=== PATIENT | male | born 1960 | race Caucasian/White ===

== ENCOUNTER 2016-10-02 04:30 | Inpatient (IN) | payer OTHER, MEDICAID ==
[2016-10-02] VITALS (12 sets, daily range): BP systolic 119–150; BP diastolic 64–106; PULSE 91–129; RESP 15–58; O2SAT 93–100
[~2016-10-02] VITALS: Ht 177.8 cm; Wt 86.6 kg
[~2016-10-02 04:30] MED LIST: DIGO250T72 PO; FURO40TA4 PO; LOSA25TA2 PO; METO25TA6 PO; NICO1PAT6 TOPICAL; POTA20TA7 PO; [UNRECOGNIZED DRUG - OTHER] PO
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
[2016-10-02] MEDS ORDERED: Albuterol-Ipratropium 3 mL Inhalation Solution ONE (04:33)
[2016-10-02] MEDS ORDERED: Albuterol 2.5 mg/3 mL Inhalation Solution NEB ONE ×2 (04:33→04:35)
[2016-10-02] MEDS ORDERED: Albuterol-Ipratropium 3 mL Inhalation Solution NEB ONE (04:35)
[2016-10-02] MEDS ORDERED: MethylprednisoLONE Sodium Succinate 62.5 mg/mL 2 mL Inj IVPUSH ONE (04:35)
[2016-10-02] MEDS ORDERED: GLIM4TAB2 PO (04:47)
[2016-10-02 04:49] LABS: BASOPHILS % (AUTO) 0.3 % (0-3); EOSINOPHILS % (AUTO) 0.2 % (0-5); MONOCYTES % (AUTO) 9.1 % (4-12); Mean Corpuscular Hemoglobin 30.7 pg (27.0-35.0); Mean Corpuscular Volume 95.8 fL (81-100); NEUTROPHILS % (AUTO) 73.2 % (40-74); Platelet Count 278 bil/L (150-400)
[2016-10-02] MEDS ORDERED: LORA1TAB PO (04:50)
[2016-10-02] MEDS ORDERED: HYDR50CA3 PO (04:50)
[2016-10-02] MEDS ORDERED: FURO40TA4 PO (04:50)
[2016-10-02 05:23] LABS: Magnesium 2.3 mg/dL (1.6-2.6)
[2016-10-02 05:41] LABS: TROPONIN T 0.065 ug/L (0.0-0.011)
[2016-10-02] MEDS ORDERED: Nitroglycerin 2% 1 Gm Ointment TOPICAL SCH (05:50)
[2016-10-02] MEDS ORDERED: Alum-Mag Hydrox-Simeth 30 mL Suspension PO PRN (07:35)
[2016-10-02] MEDS ORDERED: Ondansetron 2 mg/mL 2 mL Inj IVPUSH PRN ×2 (07:35→08:10)
[2016-10-02] MEDS ORDERED: Polyethylene Glycol (PEG) 17 Gm Powder PO PRN (08:10)
--- NOTE | 2016-10-02 08:11 | NUR ---
Admit Pt admitted to [facility] from ER at 0800. Pt sleepy but easily arousable and A&Ox3. Pt too weak to stand but slid over to bed. Vitals taken RR high 40's, hypertensive, ST 118, 02 95% on 4L simple mask. Full body rash noted along with generalized scabs. MD's aware and rounding. Admit to be completed after. No c/o pain.
[2016-10-02] MEDS ORDERED: MeTOProlol 1 mg/mL 5 mL Inj IVPUSH PRN (08:15)
[2016-10-02] MEDS: Lactated Ringer's 1,000 ML IV SCH ×2 (08:23→17:55)
[2016-10-02] MEDS: Albuterol-Ipratropium 3 mL Inhalation Solution NEB SCH ×4 (08:30→22:00)
[2016-10-02] MEDS ORDERED: Furosemide 10 mg/mL 4 mL Inj IVPUSH SCH (08:30)
[2016-10-02] MEDS ORDERED: Glucose 40% Oral Gel 15 Gm Tube PO PRN (08:40)
--- NOTE | 2016-10-02 08:48 | DRSVH ---
PROCEDURE: X-RAY CHEST ONE VIEW, PORTABLE ([id number]) INDICATIONS: SHORTNESS OF BREATH TECHNIQUE: One view of the chest was acquired. COMPARISON: [facility], CR, XR CHEST 1VW (PORTABLE), 06/16/2016, 17:22. [facility], CR, XR CHEST 2VW, 05/25/2016, 19:58. FINDINGS: Surgical changes and devices: lunchroom monitor leads and oxygen tubing is seen over the chest. Lungs and pleura: Minimal blunting of the costophrenic sulci is present. Lungs are clear of Increased interstitial markings are present. Mediastinum: Mediastinal contours appear normal. Heart size is enlarged but unchanged Bones and chest wall: No suspicious bony lesions. Overlying soft tissues appear unremarkable. IMPRESSION: Chronic increased markings versus mild interstitial pulmonary edema. Focal airspace disea se is not seen. Dictated by: Neno Blank M.D. on 10/02/2016 at 8:43 Approved by: Neno Blank M.D. on 10/02/2016 at 8:46
[2016-10-02] MEDS ORDERED: DIETARY SUPPLEMENT PO (09:30)
[2016-10-02] MEDS ORDERED: UBID60CA6 PO (09:37)
[2016-10-02] MEDS ORDERED: CRAN500T2 PO (09:37)
[2016-10-02 09:43] LABS: BASOPHILS % (AUTO) 0.1 % (0-3); EOSINOPHILS % (AUTO) 0 % (0-5); MONOCYTES % (AUTO) 2.5 % (4-12); Mean Corpuscular Hemoglobin 30.7 pg (27.0-35.0); Mean Corpuscular Volume 95.1 fL (81-100); NEUTROPHILS % (AUTO) 92.2 % (40-74); Platelet Count 233 bil/L (150-400)
[2016-10-02 09:43] LABS: APPEARANCE,URINE SLIGHTLY CLOUDY (CLEAR,HAZY); COLOR,URINE YELLOW (YELLOW); OCCULT BLOOD,URINE MODERATE (NEGATIVE); UROBILINOGEN,URINE NORMAL (NORMAL)
[2016-10-02 10:08] LABS: Phosphorus 3.6 mg/dL (2.5-4.9)
--- NOTE | 2016-10-02 10:15 | PCM.HPMED ---
Subjective Date of Service Oct 02, 2016 Primary Provider: Admitting Physician: Frankie Bui MD Primary Care Physician: Leticia Jacobs MD Attending Physician: Frankie Bui MD Chief Complaint: Shortness of breath/CHF exacerbation History of Present Illness: Mr. Gonzáles is a 56-year-old male with past medical history of congestive heart failure, asthma, methamphetamine use, chronic tobacco use, anxiety and depression presented to [facility] ED secondary to SOB 3 days. At time of interview patient somnolent with oxygen mask in place, able to answer questions in 1-2 word sentences though unable to provide a detailed history of present illness. The overall picture seems to be that over the last 3 days he has become increasingly short of breath, unknown if he has been compliant with his medications. He endorses continual methamphetamine as well as marijuana use during this time (no mask today). He endorses a cough during this time productive for white sputum, denies fevers denies sick contacts. Unknown about immunization status, unknown travel history unknown exposure history. He denies cardiac chest pain, endorses a shortness of breath with pain on deep inhalation. He endorses a left upper and lower abdominal/flank pain which increases with palpation, further stating that pain has always been there. Patient was hospitalized 06/16/2016 secondary to decompensated heart failure and cardiomyopathy of unknown etiology. LVEF seen to be 15-20% with severe global hypokinesis, though no significant valvular abnormalities found. The plan was to do cardiac catheterization for an ischemic workup however patient was not compliant with this plan or with medications. He followed up with cardiology on 07/07/[address] Phelps and LYLE Cardoso. Still showing signs of cardiomyopathy and sinus tachycardia. His instructions were to continue taking his furosemide 40 mg twice a day, losartan 0.5 milligrams daily and digoxin 0.25 mg daily and metoprolol 12.5 mg daily. He refused metoprolol and other medications stating that he would decide for himself if it would be good or not for him. The only vacations he was agreeable to take at that time was digoxin, Lasix and losartan. Per cardiology note patient is in need of an ischemic workup with cardiac catheterization however patient was not interested in this treatment plan or wearing a LifeVest. And only minimally compliant with cardiac medications. In the ED patient received DuoNeb treatment with benefit. Admitted to [facility]. A comprehensive review of systems was conducted with the patient and found to be negative except as above in the history of present illness. Allergies Coded Allergies: Penicillins (Verified Allergy, Severe, 10/02/16) Uncoded Allergies: NARCOTIC (Allergy, Intermediate, anxiety, panic attacks, suicidal., ) Patient states he gets panic attacks from narcotics if he is on them for a long time. He said more than 10-11 days. STEROIDS (Allergy, Intermediate, violent, 11/08/13) Home Medications Per Med Rec: Digoxin 0.25 mg daily Furosemide 80 mg oral daily Glimiperide 4 mg oral daily Hydroxyzine pamoate 50 mg capsule when necessary Lorazepam 1 mg daily when necessary for insomnia Losartan 12.5 mg by mouth daily Toprol tartrate 12.5 mg twice a day Nicotine patch 21 mg daily Potassium chloride 20 mEq equivalence by mouth daily Per previous hospital admission Albuterol HFA (Proair HFA) 8.5 Gm Hfa.aer.ad 2 PUFFS INHALATION Q4H Azithromycin (Zithromax) 250 Mg Tablet 250 MG PO DAILY Cefuroxime Axetil (Ceftin) 500 Mg Tablet 500 MG PO BID Fluticasone Propionate (Fluticasone Propionate Nasal) 16 Gm [place].susp 1 SPRAY NS BID CoQ10. 60 mg daily PMH Per previous records CHF, EF 15-20% Anxiety Asthma Diabetes mellitus type II Depression Chronic back pain Surgical History Colonoscopy C5-6 Disectomy Reports: Back/neck surgery Family History FAMILY HX CHF Social History Hx Alcohol Use: Yes Alcoholic Drinks Per Day: 1 a week Hx Substance Use: No Smoking Status: Current Every Day Smoker Exam Vital Signs Vital Sign - Last Date Time Temp Pulse Resp B/P Pulse Ox O2 Delivery O2 Flow Rate FiO2 10/02/16 09:54 Supplement Oxygen 10/02/16 08:04 122 10/02/16 08:02 37.0 58 143/106 98 15.00 Exam General: Patient is somnolent but arousable to voice, sitting in bed tachypneic with oxygen mask in place. To answer questions in 1-2 word responses. HEENT: Normocephalic, atraumatic. External ears without defect. Pupils equal, round, and reactive to light and accommodation. Neck: No jugular venous distension. No bruits Cardiovascular: Tachycardic rate with regular rhythm no murmurs appreciated. Pulmonary: Positive bilateral wheezes, and rhonchi in upper anterior lung crum , patient unable or unwilling to sit up for exam. Abdomen: Bowel tones present. Soft, ended to palpation left lower left upper quadrants. Nondistended. No rigidity or guarding Extremities: No clubbing, cyanosis, edema appreciated Skin: Diffuse mottled rash over chest arms and legs. Normal temperature and turgor. Many excoriations covering face arms "pick sores" Neurological: Cranial nerves grossly intact. Psychiatric: Somnolent, alert and oriented to person place and time. Lab and Diagnostics Result Diagram: 10/02/16 0926 10/02/16 0440 X-Rays, CTs and MRIs . X-RAY CHEST ONE VIEW, PORTABLE IMPRESSION: Chronic increased markings versus mild interstitial pulmonary edema. Focal airspace disease is not seen. Dictated by: eNno Blank M.D. on 10/02/2016 at 8:43 Additional Diagnostics: pH ____7.425 - 7.350 7.450 pCO2 ___36.6__ -mmHg 35.0 45.0 pO2 ___44.1__ -mmHg 69.0 116 HCO3- ___23.6__ -mmol/L 22.0 26.0 Assessment & Plan Mr. Gonzáles is a 56-year-old gentleman with past medical history of congestive heart failure, asthma, methamphetamine use, chronic tobacco use, anxiety and depression who is admitted for CHF exacerbation and sepsis. Hospital day 1 1. Severe Sepsis. Present on admission. Ongoing - Sepsis criteria met with tachycardia, tachypnea, and lactic acidosis and leukocytosis - Possible sources include a pneumonia, UTI - Appropriate cultures and serologies pending - Documented allergy to penicillin, patient states he was told he would if he took this medication - Vancomycin, levofloxacin and metronidazole started - Continue to monitor 2. Congestive heart failure with systolic dysfunction. Present on admission. Ongoing - Last echo showed an EF of 15% with severe global hypokinesis. - Questionable medication compliance prior to admission - CXR showed cardiomegaly - Repeat echo pending - Cardiology consult - Lasix 40 mg given with improvement in respiratory status - Restart home meds digoxin, metoprolol, losartan, furosemide 3. Acute respiratory failure with hypoxia. Present on admission. Ongoing - Severe respiratory distress seen in ED with tripoding position - DuoNeb's given with some effect - Solu-Medrol given, diffuse rash resultant most likely secondary to allergy - Hold additional steroid administration - Continue duo nebs every 3 schedule - Supplemental O2 - ABGs showed pH 7.4, PCO2 37, PO2 44.1, HCO3 23.6. - Continue to monitor 4. Elevated troponins. Present on admission. Improving - In the setting of CKD - Previous echo shows severe global hypokinesis - ECG showed evidence of old infarction - Troponin trending down 0.065 on admit to 0.04 - Continue to monitor - Cardiology following 5. Possible Pneumonia. Present on admission. Ongoing - CXR showed interstitial markings versus pulmonary edema - Pro calcitonin pending - Antibiotics as in #1 6. Urinary tract infection. Present on admission. Ongoing - Urinalysis showed packed WBC. Large leukocyte esterase. - Culture pending - Antibiotics as in #1 7. Chronic kidney disease. Present on admission. Ongoing - Creatinine 1.29 on admission, previous records show elevated creatinine - Lasix given - Continue to monitor 8. Drug dependence. Present on admission. Ongoing - Patient has history of chronic methamphetamine, alcohol and marijuana use - Monitor for withdrawal symptoms - CIWA protocol 9. Hyponatremia. Present on admission. Improving - Most likely secondary to volume overload - Sodium on admission 130, repeat level 133 -Continue to monitor 10. Diabetes mellitus type II and present on admission. Ongoing - Last A1c 06/17/2016 7.5, repeat value pending - Blood glucose level 380 on admit - High-dose correctional scale insulin - Continue to monitor 11. Transaminitis. Present on admission. Ongoing - Possibly secondary to chronic alcohol use - AST 927, AST 1017 - HIV from 06/18/2016 nonreactive - Hepatitis panel pending DVT prophylaxis: Subcutaneous heparin GI prophylaxis: Not indicated CODE STATUS: Full code Patient Status: Patient was admitted under inpatient status with expected length of stay greater than two midnights due to severity of presenting symptoms , risk of adverse event, and complexity of treatment plan. Pain Evaluation: Adequate Pain Control VTE Mechanical Devices: Intermittant Pneumatic CD Resuscitation Status: CPR: Attempt Resuscitation Attending Statement The patient was seen and examined together with Dr. Saenz on 10/02/2016 and I agree with the history, exam and plan as outlined in the note above. . LISBET SAENZ DO Oct 02, 2016 10:15 Karl Naik MD Oct 02, 2016 18:15
--- NOTE | 2016-10-02 10:33 | ABG ---
DateTimeAnalyzed 10:27:00 -_ pH ____7.425 - 7.350 7.450 pCO2 ___36.6__ -mmHg 35.0 45.0 pO2 ___44.1__ -mmHg 69.0 116 HCO3- ___23.6__ -mmol/L 22.0 26.0 ABE ____0.0__ -mmol/L -2.0 2.0 tHb ___13.3__ -g/dL O2Hb ___74.6__ -% COHb ____1.4__ -% MetHb ____0.8__ -% sO2 ___76.3__ -% 25.0 FIO2 ___21.0__ -% Drawn By [facility] - Date/Time Notified____ 10:33:00 -_ Notified By [facility] - Notified Whom Dany, Sanchez DO -___ B 753 -mmHg tO2 ___13.9__ -Vol% Nelson test _Positive -
--- NOTE | 2016-10-02 11:39 | NUR ---
Social Work Note: Screen Note Data& Assessment: EMR reviewed. Javier Gonzáles is a 56 year old male admitted on 10/02/2016 for CHF exacerbation, dynea, and elevated troponin. Pt has [employer] insurance coverage and sees Leticia Jacobs MD for primary care. Pt lives in [place] and is independent at baseline. Per MD pt does use methamphetamine. SW to follow up with pt regarding substance use, and resources. Pt requires oxygen, SW to follow for any respiratory needs. SW to continue to follow. Plan: Anticipated discharge home via POV when medically ready. SW to follow up with pt regarding substance use, and resources. SW to follow for any respiratory needs. No other discharge needs identified at this time. SW to continue to follow. SHEBA Green
[2016-10-02] MEDS ORDERED: Vancomycin Dose per Pharmacist XX SCH (11:40)
[2016-10-02] MEDS ORDERED: Vancomycin/500 mL NS IV ONE ×2 (13:00)
[2016-10-02] MEDS ORDERED: FluocinoNIDE Acet 0.05% 30 Gm Cream TOPICAL PRN (13:03)
[2016-10-02] MEDS ORDERED: 0.9% Sodium Chloride 250 ML ONE (13:35)
[2016-10-02] MEDS: Insulin LISPRO 300 Unit/3 mL Inj SUBQ SCH ×3 (13:40→21:37)
[2016-10-02] MEDS: Multivit-Miner-Folic Acid-Iron Tablet PO SCH (13:41)
[2016-10-02] MEDS: levoFLOXacin Inj 750 MG in IV Premix 1 EACH IV SCH (13:42)
[2016-10-02] MEDS: metroNIDAZOLE Inj 500 MG in IV Premix 1 EACH IV SCH ×2 (15:22→16:30)
[2016-10-02] MEDS: Vancomycin Dose per Pharmacist XX SCH (15:43)
--- NOTE | 2016-10-02 15:49 | DRSVH ---
[facility] [address] [place] [address] Echocardiogram Report Name: ANTONELLA LOUIS GStudy Date: 10/02/2016 Height: 70 in Hospital Exam Location: [facility] Weight: 196 lb Gender: Male BSA: 2.1 m2 : 1960 Age: 56 yrs BP: 144/71 m mHg Reason For Study: Congestive Heart Failure Ordering Physician: [facility] Performed By: Sheri Pierce Referring Physician: Jessica Phelps Interpretation Summary 1) Mild concentric left ventricular hypertrophy with normal size and severely reduced function (EF 15-20%). 2) Multiple mural thrombi noted in LV apex and along inferolateral wall. 3) Mild to moderately enlarged right ventricle with mildly to moderate reduced function. 4) There is a moderate left-sided pleural effusion. 5) Elevated right sided filling pressures. 6) Compared to the Echo done 06/16/2016, multiple mural thrombi are present in the LV. Findings discussed with Dr. Daniel Saenz at 1545 on 10/02/2016 and recommend anticoagulation unless contraindicated. Procedure: A two-dimensional transthoracic echocardiogram with color flow and Doppler was performed. The study quality was technically adequate. Comparison is made with the echocardiogram of 06/16/2016. Left Ventricle: The left ventricle is normal in size. There is mild concentric left ventricular hypertrophy. Multiple mural thrombi noted in LV apex and along inferolateral wall. The ejection fraction is estimated to be 15-20%. Left ventricular systolic function is severely reduced. There is severe global hypokinesis of the left ventricle. Diastolic function could not be accurately assessed due to tachycardia. Right Ventricle: The right ventricle is mild to moderately dilated. Right ventricular systolic function is mild to moderately reduced. Atria: The left atrium is severely dilated. The right atrium is mildly dilated. Mitral Valve: The mitral valve is normal in structure and function. There is trace mitral regurgitation. Aortic Valve: The aortic valve is normal in structure and function. There is no aortic valve stenosis. No aortic regurgitation is present. Tricuspid Valve: The tricuspid valve is normal in structure and function. Pulmonary artery pressures cannot be estimated because of the lack of a measurable TR jet velocity. Pulmonic Valve: The pulmonic valve is normal in structure and function. There is a trace or physiologic amount of pulmonic regurgitation. Great Vessels: The aortic root is normal size. The ascending aorta is normal in size. The IVC is dilated (diameter is greater than 2.1 cm) and it collapses less than 50% with a sniff. This suggests a high right atrial pressure of 15 mm Hg. Pericardium/ Pleura There is no pericardial effusion. There is a moderate left-sided pleural effusion. MMode/2D Measurements & Calculations LVIDd: 5.5 cm RA long axis: 5.5 cm LVOT diam LVIDs: 4.9 cm LA A2 area: 29.2 cm FS: 10.7 % LA A4 area: 29.7 cm RA area: 21.0 cm AoV Opening EPSS: 1.5 cm LA length (vol): 6.7 cm RA vol: 68.7 ml IVSd: 1.1 cm LA vol: 109.5 ml RA : 33.2 ml/m2 asc Aorta LVPWd: 1.2 cm LA vol index Diam: 3.2 cm IVC diam: 2.5 cm EDV(MOD-sp2) LV french. diameter/BSA LV sys. diameter/BSA RVD1 (basal) : 170.7 ml (cm/m^2): 2.7 (cm/m^2): 2.4 : 4.6 cm RVD2 (mid) TAPSE: 1.6 cm : 3.6 cm Doppler Measurements & Calculations Ao V2 max MVA(VTI) PA V2 max MV V2 mean: 72.1 cm/sec : 73.9 cm/sec : 74.2 cm/sec MV mean P.3 mmHg Ao max PG : 4.3 cm2 PA mean PG MV V2 VTI: 12.4 cm : 2.2 mmHg Ao mean PG PA Accel Time LVOT Max Sven : 76.7 cm/sec KELLI(I,D): 5.5 cm sev ratio: 1.3 Ao V2 mean LV V1 max PG PA V2 mean KELLI indexed to BSA : 52.1 cm/sec : 57.1 cm/sec (cm^2/m^2): 2.7 Ao V2 VTI: 9.8 cm LV V1 VTI KELLI(V,D): 4.4 cm2 : 12.8 cm Reading Physician:03:49 PM
[2016-10-02] MEDS: Furosemide 10 mg/mL 4 mL Inj IVPUSH SCH ×2 (16:26→21:57)
[2016-10-02 16:33] LABS: Creatine Kinase 107 U/L (21-232)
[2016-10-02] MEDS: LORazepam 1 mg Tablet PO PRN (21:39)
[2016-10-03] VITALS (10 sets, daily range): BP systolic 109–122; BP diastolic 68–86; PULSE 102–112; RESP 22–26; O2SAT 92–99
[2016-10-03] MEDS: Albuterol-Ipratropium 3 mL Inhalation Solution NEB SCH ×2 (00:30→04:30)
[2016-10-03] MEDS: metroNIDAZOLE Inj 500 MG in IV Premix 1 EACH IV SCH ×3 (01:17→17:01)
[2016-10-03 04:06] LABS: BASOPHILS % (AUTO) 0.1 % (0-3); EOSINOPHILS % (AUTO) 0 % (0-5); MONOCYTES % (AUTO) 5.7 % (4-12); Mean Corpuscular Hemoglobin 30.6 pg (27.0-35.0); Mean Corpuscular Volume 96.6 fL (81-100); NEUTROPHILS % (AUTO) 88.4 % (40-74); Platelet Count 221 bil/L (150-400)
[2016-10-03 04:21] LABS: INR 1.61 ratio
[2016-10-03 04:41] LABS: Magnesium 1.8 mg/dL (1.6-2.6)
[2016-10-03] MEDS: Lactated Ringer's 1,000 ML IV SCH (06:07)
[2016-10-03 06:08] LABS: Hepatitis A Antibody IgM Negative (Negative); Hepatitis B Core Antibody IgM Negative (Negative)
--- NOTE | 2016-10-03 07:23 | DRSVH ---
PROCEDURE: X-RAY CHEST ONE VIEW, PORTABLE ([id number]) INDICATIONS: Poss Pneumonia TECHNIQUE: One view of the chest was acquired. COMPARISON: [facility], CR, XR CHEST 1VW (PORTABLE), 10/02/2016, 4:53. FINDINGS: Surgical changes and devices: None. Lungs and pleura: No pleural effusions or pneumothorax. Mildly increased medial left lower lobe retr ocardiac patchy opacity. Mediastinum: Mediastinal contours appear normal. Heart size is normal. Bones and chest wall: No suspicious bony lesions. Overlying soft tissues appear unremarkable. IMPRESSION: Mildly increased patchy opacity in the medial retrocardiac left lower lung base since yes terday, raising the possibility of mild atelectasis/aspiration versus early pneumonia. Recommend clin ical correlation and continued radiographic followup Dictated by: Sage Dennis M.D. on 10/03/2016 at 7:20 Approved by: Sage Dennis M.D. on 10/03/2016 at 7:21
[2016-10-03] MEDS: levoFLOXacin Inj 750 MG in IV Premix 1 EACH IV SCH (08:00)
[2016-10-03] MEDS: Furosemide 10 mg/mL 4 mL Inj IVPUSH SCH ×2 (08:01→20:14)
[2016-10-03] MEDS: Insulin LISPRO 300 Unit/3 mL Inj SUBQ SCH ×4 (08:06→21:28)
[2016-10-03] MEDS: Multivit-Miner-Folic Acid-Iron Tablet PO SCH (08:08)
[2016-10-03] MEDS: Vancomycin Dose per Pharmacist XX SCH (08:30)
[2016-10-03] MEDS: Insulin GLARgine 100 Unit/mL Syringe SUBQ SCH ×2 (12:05→21:29)
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
[2016-10-03] MEDS: Alum-Mag Hydrox-Simeth 30 mL Suspension PO PRN (14:05)
--- NOTE | 2016-10-03 15:10 | NUR ---
Social Work Note: Continued Discharge Planning/CD Assessment Data& Assessment: SW met with pt at bedside to discuss discharge planning and Meth use, SW role explained. Per MD pt may require leydi cath and is not medically ready for discharge at this time. Pt lives in [place] with roommates. His roommates helps him with grocery shopping, chores and driving him to appointments if needed. Pt is otherwise independent and uses a cane at baseline for ambulation assistance. Pt reports that he only uses meth "occasionally" since he was younger and it is not something he is "addicted" to. Pt states that he has "self control" and has quite smoking on his own and was able to stop using cocaine after a couple of weeks on his own when he was younger as well. Pt explained that he was once evaluated by [facility] (pt did not explain what led to the assessment) and deemed "not an addict." Pt declined any CD resources at this time. Pt denied any current SI. Pt denies any hx of SI or thoughts of harming himself or others. Pt states he his roommate will transport him home when medically ready. Pt accepted DPOA/Advance Directive paperwork to review and complete for his chart. Pt denies any other needs. No other discharge needs identified. SW to continue to follow if any needs arise. Plan: Anticipated discharge home via POV when medically ready. Pt denies any other needs. No other discharge needs identified. SW to continue to follow if any needs arise. SHEBA Green
[2016-10-03] MEDS: LORazepam 1 mg Tablet PO PRN (15:32)
--- NOTE | 2016-10-03 17:34 | NUR ---
Anxiety/Blood sugars The pt reported SOB numerous times on the second half of this shift - reports it's related to "feeling anxious". Oxymask at 4L and PO lorazepam sufficient at relieving the SOB. The pt's blood sugars were >500 this morning, and gradually came down with correctional and long acting insulin. Will continue to monitor.
--- NOTE | 2016-10-03 20:34 | PCM.PNMED ---
Subjective Date of Service Oct 03, 2016 Subjective Patient is a 56-year-old gentleman with congestive heart failure, asthma, methamphetamine use, chronic tobacco use, anxiety and depression admitted for CHF exacerbation and sepsis. No overnight events. Patient has been non-compliant with treatment this morning refusing Lovenox and supplemental oxygen. During my interview the patient seems ambivalent and not interested in participating. He reports that he is tired, otherwise is without other complaint. Exam Vital Signs Vital Sign - Last Date Time Temp Pulse Resp B/P Pulse Ox O2 Delivery O2 Flow Rate FiO2 10/03/16 20:10 36.5 112 26 119/79 97 Simple Mask 5.00 Intake and Output 10/02/16 10/02/16 10/03/16 Cumulative From/Thru 15:00 23:00 07:00 10/02/16 04:35 - 10/03/16 06:31 Intake Total 2204 ml 1600 ml 3804 ml Output Total 3450 ml 2200 ml 5650 ml Balance -1246 ml -600 ml -1846 ml Intake Oral 1154 ml 1000 ml 2154 ml IV Total 1050 ml 600 ml 1650 ml Output Urine Total 3450 ml 2200 ml 5650 ml # Bowel Movements 1 1 Exam General: Patient is supine in bed. No acute distress. Not interactive. HEENT: Normocephalic, atraumatic. External ears without defect. Cardiovascular: Tachycardic with regular rhythm. No murmurs appreciated. Pulmonary: Occasional wheeze bilaterally Abdomen: Bowel tones present. Nontender. Soft. Extremities: No clubbing, cyanosis, edema appreciated Skin: Normal temperature and turgor. Multiple excoriations on face and arms Neurological: Cranial nerves grossly intact. Psychiatric: Alert and oriented to person, place and time. IVs and Medications Medications Reviewed: Medications were reviewed in detail Lab and Diagnostics Result Diagram: 10/03/165 10/03/16344 X-Rays, CTs and MRIs . X-RAY CHEST ONE VIEW, PORTABLE IMPRESSION: Chronic increased markings versus mild interstitial pulmonary edema. Focal airspace disease is not seen. Dictated by: Neno Blank M.D. on 10/02/2016 at 8:43 Additional Diagnostics pH ____7.425 - 7.350 7.450 pCO2 ___36.6__ -mmHg 35.0 45.0 pO2 ___44.1__ -mmHg 69.0 116 HCO3- ___23.6__ -mmol/L 22.0 26.0 Assessment & Plan Mr. Gonzáles is a 56-year-old gentleman with past medical history of congestive heart failure, asthma, methamphetamine use, chronic tobacco use, anxiety and depression who is admitted for CHF exacerbation and sepsis. Hospital day 2 1. Severe Sepsis. Present on admission. Ongoing - Sepsis criteria met with tachycardia, tachypnea, and lactic acidosis and leukocytosis - Possible sources include a pneumonia, UTI - Negative: Respiratory virus PCR, Strep pneumo ur ag, legionella ur ag - Documented allergy to penicillin, patient states he was told he would if he took this medication - Continue Vancomycin, levofloxacin and metronidazole - Continue to monitor 2. Congestive heart failure with systolic dysfunction. Present on admission. Ongoing - Echo shows EF of 15-20% with severe global hypokinesis and multiple mural thrombi in LV apex and inferolateral wall - Patient admits to not taking his medications over the past year - CXR showed cardiomegaly - Repeat echo pending - Cardiology following - Continue Lasix 40mg - Continue digoxin, metoprolol 3. Acute respiratory failure with hypoxia. Present on admission. Ongoing - Severe respiratory distress seen in ED with tripoding position - DuoNeb's given with some effect - Solu-Medrol given, diffuse rash resultant most likely secondary to allergy - Hold additional steroid administration - Continue duo nebs every 3 schedule - Supplemental O2 - ABGs showed pH 7.4, PCO2 37, PO2 44.1, HCO3 23.6. - Continue to monitor 4. Elevated troponin. Present on admission. Improving - In the setting of CKD - Echo shows severe global hypokinesis - ECG showed evidence of old infarction - Troponin trending down 0.065 on admit to 0.021 - Continue to monitor - Cardiology following 5. Acute kidney injury. Present on admission. Active - Records from 3 months ago show normal creatinine - Will hold losartan until back to baseline 6. Possible Pneumonia. Present on admission. Ongoing - CXR showed interstitial markings versus pulmonary edema - Procalcitonin elevated at 0.38, 0.36 - Antibiotics as in #1 7. Urinary tract infection. Present on admission. Ongoing - Urinalysis showed packed WBC. Large leukocyte esterase. - Culture pending - Antibiotics as in #1 8. Drug dependence. Present on admission. Ongoing - Patient has history of chronic methamphetamine, alcohol and marijuana use - Monitor for withdrawal symptoms - CIWA protocol 9. Hyponatremia. Present on admission. Improving -Most likely secondary to volume overload -Continue to monitor 10. Diabetes mellitus type II and present on admission. Ongoing - Last A1c 06/17/2016 7.5, repeat value pending - Blood glucose level 380 on admit - High-dose correctional scale insulin - Continue to monitor 11. Transaminitis. Present on admission. Ongoing - Possibly secondary to chronic alcohol use - AST 927, AST 1017 - HIV from 06/18/2016 nonreactive - Hepatitis panel positive for hep C Ab DVT prophylaxis: Subcutaneous heparin GI prophylaxis: Not indicated CODE STATUS: Full code Disposition: Patient currently being diuresed for heart failure. Anticipate several more days of inpatient status pending clinical course. Pain Evaluation: Adequate Pain Control VTE Mechanical Devices: Intermittant Pneumatic CD Resuscitation Status: CPR: Attempt Resuscitation Attending Statement The patient was seen and examined together with Dr. Morales on 10/03/2016 and I agree with the history, exam and plan as outlined in the note above. . Paramjit Morales DO Oct 03, 2016 20:34 Karl Naik MD Oct 04, 2016 10:50
[2016-10-04] VITALS (9 sets, daily range): BP systolic 102–126; BP diastolic 71–87; PULSE 104–113; RESP 20–32; O2SAT 92–99
[2016-10-04] MEDS: metroNIDAZOLE Inj 500 MG in IV Premix 1 EACH IV SCH ×2 (00:22→07:50)
--- NOTE | 2016-10-04 02:42 | NUR ---
BLOOD SUGARS Pt BS @ HS was 357, 7 units regular and 20 units Lantus. BS's rechecked @ 0200 and were 309. Pt's vitals stable, ST 110's, no other issues noted at this time.
[2016-10-04 04:23] LABS: BASOPHILS % (AUTO) 0 % (0-3); EOSINOPHILS % (AUTO) 0.2 % (0-5); MONOCYTES % (AUTO) 7.7 % (4-12); Mean Corpuscular Hemoglobin 30.5 pg (27.0-35.0); Mean Corpuscular Volume 96.6 fL (81-100); NEUTROPHILS % (AUTO) 82.2 % (40-74); Platelet Count 240 bil/L (150-400)
[2016-10-04 04:38] LABS: Magnesium 1.9 mg/dL (1.6-2.6)
[2016-10-04] MEDS: Albuterol-Ipratropium 3 mL Inhalation Solution NEB PRN (07:22)
[2016-10-04] MEDS ORDERED: 0.9% Sodium Chloride 250 ML ONE (07:40)
[2016-10-04] MEDS: Furosemide 10 mg/mL 4 mL Inj IVPUSH SCH ×2 (07:59→21:10)
[2016-10-04] MEDS ORDERED: Vancomycin Serum Trough XX ONE (08:00)
[2016-10-04] MEDS: Multivit-Miner-Folic Acid-Iron Tablet PO SCH (08:04)
[2016-10-04] MEDS: Vancomycin Dose per Pharmacist XX SCH (08:30)
[2016-10-04] MEDS: Insulin LISPRO 300 Unit/3 mL Inj SUBQ SCH ×4 (09:12→21:19)
[2016-10-04] MEDS: levoFLOXacin Inj 750 MG in IV Premix 1 EACH IV SCH (10:47)
--- NOTE | 2016-10-04 11:44 | NUR ---
Restless/hot chocolate spill Pt A&OX3 but intermittently anxious throughout the shift. Calm in the morning, restless and agitated in the afternoon, calm currently. C/O pain "all over". Breathing shallow and labored. Pt asked for a hot chocolate this AM but very quickly spilled it down the side of his R arm. The water was quite hot. Red rashy area present but pt states that was there before. Continuing to monitor for any burned or irritated skin. Cool towels provided for comfort.
--- NOTE | 2016-10-04 13:40 | DRSVH ---
PROCEDURE: X-RAY CHEST ONE VIEW, PORTABLE ([id number]) INDICATIONS: dyspnea TECHNIQUE: One view of the chest was acquired. COMPARISON: [facility], CR, XR CHEST 1VW (PORTABLE), 10/03/2016, 3:23. FINDINGS: Surgical changes and devices: None. Lungs and pleura: No pleural effusions or pneumothorax. Lungs are clear. Mediastinum: Mediastinal contours appear normal. Heart size is normal. Bones and chest wall: No suspicious bony lesions. Overlying soft tissues appear unremarkable. IMPRESSION: No acute cardiopulmonary disease. Dictated by: Jacob Mulligan [facility] Interpreted: Modesta Rutledge MD on 10/04/2016 at 13:39 Transcribed by: ARY on 10/04/2016 at 13:39 Approved by: Modesta Rutledge MD, PhD on 10/04/2016 at 17:20
--- NOTE | 2016-10-04 13:55 | PROG NOTE ---
[address] [address] PROGRESS NOTE PATIENT: ANTONELLA LOUIS : 1960 MR#: [id number] ADMIT: 10/02/2016 JOB ID: [id number] DATE: I have had an opportunity to review the patient's records and Dr. Leonard's consultation. Patient is currently sleeping and therefore my followup is limited to chart review and recommendations regarding his medications. This gentleman is diuresing well, approximately 1-2 L daily. His pulses have been consistently in the 100-120 range in a sinus rhythm, and blood pressure has generally been in the 100-130 range as well. His lab work is reviewed and shows a creatinine of 1.24, which is fairly stable, with an estimated GFR of 64. He remains significantly hyperglycemic. Transaminase levels are significantly improved. Given this gentleman's cardiomyopathy and ventricular dysfunction with his tachycardia, I am going to change him from metoprolol tartrate to metoprolol succinate and will order 25 mg twice a day daily and increase that as tolerated to get his heart rate below 100. Will also get him restarted up on low-dose losartan and low-dose spironolactone, watching his potassium and renal function closely. Social Service and perhaps even Psychiatry consult or drug rehab consultation should be considered. None of what we do will be impactful for this gentleman unless he is able to modify his drug use, eliminating methamphetamines for sure, and alcohol as well, given his cardiomyopathy and participating in his own medical care. I will plan to stop by tomorrow to follow up and will spend more time examining him tomorrow, if he is agreeable. DATE:
--- NOTE | 2016-10-04 14:27 | NUR ---
Blood sugars/anxiety Pt CBG this morning was 262. Sliding scale given. CBG in the afternoon was 467. Sliding scale given and MD notified. Pt appears restless and agitated but c/o feeling overly sleepy. Pt appears to have difficulty monitoring his temperature frequently c/o feeling too hot then too cold. Ativan was offered but pt refused stating "that's just gonna make me even more sleepy."
--- NOTE | 2016-10-04 15:24 | NUR ---
Near choking incident Staff heard patient gasping and coughing in room. Pt was able to say that he swallowed some jello "down the wrong pipe." Pt coughed hard for a couple of minutes and eventually produced some jello sputum. Pt educated to be sitting completely upright when eating. Lungs were clear following this event.
--- NOTE | 2016-10-04 17:02 | NUR ---
spiritual care: pt request visit attempt X2; pt with staff. will follow
[2016-10-04] MEDS: Alum-Mag Hydrox-Simeth 30 mL Suspension PO PRN (17:59)
--- NOTE | 2016-10-04 18:13 | DRSVH ---
PROCEDURE: US ABDOMEN ([id number]) INDICATIONS: elevated liver enzymes TECHNIQUE: Real-time scanning was performed of the abdominal and retroperitoneal organs, with image documentatio n. COMPARISON: [facility], US, US ABDOMEN, 07/02/2016, 12:24. FINDINGS: Liver: Liver is heterogeneous in appearance with increased echogenicity and coarse sonographic echot exture compatible with fatty infiltration. Gallbladder: There are multiple echogenic shadowing gallstones within a contracted gallbladder. Eval uation for gallbladder wall thickness is limited due to nondistention. Patient was reportedly tender during evaluation. No pericholecystic fluid identified. Biliary ducts: Intrahepatic bile ducts are non-dilated. Extrahepatic bile duct caliber measures 4-5 mm. Normal is 6-7 mm or less in diameter, or 10 mm or less post-cholecystectomy. Pancreas: Not well-seen due to bowel gas. Spleen: Spleen is normal in size and homogeneous in echotexture. Kidneys: Right kidney measures 11.2 cm long; left kidney measures 10.5 cm long. No hydronephrosis. Aorta: Visualized aorta is normal in caliber at less than 3 cm. Iliacs: Proximal common iliac arteries are not well seen due to bowel gas. IVC: Intrahepatic inferior vena cava is patent. Miscellaneous: No free abdominal fluid. IMPRESSION: 1. Increased hepatic echogenicity with coarse sonographic echotexture compatible with steatosis. 2. Cholelithiasis without definite evidence of cholecystitis. Evaluation limited due to incomplete distention of the gallbladder. 3. Dictated by: Kemal Chauhan M.D. on 10/04/2016 at 18:07 Approved by: Kemal Chauhan M.D. on 10/04/2016 at 18:11
--- NOTE | 2016-10-04 18:16 | PCM.PNMED ---
Subjective Date of Service Oct 04, 2016 Subjective Patient is a 56-year-old gentleman with congestive heart failure, asthma, methamphetamine use, chronic tobacco use, anxiety and depression admitted for CHF exacerbation and sepsis. Overnight: Patient remained restless and anxious throughout the night. Complaining of pain all over with shallow labored breathing. Today: Patient awake and alert sitting in bed. States he has pain all over, is able to get up bedside commode and urinate. Denies chest pain, denies shortness of breath. Endorses a diffuse soreness secondary to having to lie in bed all day. States he is willing to be compliant with medication administration Exam Vital Signs Vital Sign - Last Date Time Temp Pulse Resp B/P Pulse Ox O2 Delivery O2 Flow Rate FiO2 10/04/16 16:34 36.2 108 21 124/81 92 Room Air 10/04/16 12:37 4.00 Intake and Output 10/03/16 10/03/16 10/04/16 Cumulative From/Thru 14:59 22:59 06:59 10/02/16 04:35 - 10/04/16 06:22 Intake Total 1800 ml 986 ml 6590 ml Output Total 1800 ml 2950 ml 31674 ml Balance 0 ml -1964 ml -3810 ml Intake Oral 1800 ml 636 ml 4590 ml IV Total 350 ml 2000 ml Output Urine Total 1800 ml 2950 ml 37691 ml # Bowel Movements 0 0 1 Exam General: Patient is supine in bed. Awake and alert in no acute distress, opens eyes to voice and able to converse appropriately. HEENT: Normocephalic, atraumatic. External ears without defect. PERRLA Cardiovascular: Tachycardic with regular rhythm. No murmurs appreciated. Pulmonary: Bilateral slight wheezes. No use of accessory muscles. No increased work of breathing. Abdomen: Bowel tones present. Nontender. Soft. Extremities: No clubbing, cyanosis, edema appreciated Skin: Normal temperature and turgor. Multiple excoriations on face and arms. Mottled rash right upper extremity. Neurological: Cranial nerves grossly intact. Psychiatric: Alert and oriented to person, place and time. IVs and Medications Medications Reviewed: Medications were reviewed in detail Lab and Diagnostics Result Diagram: 10/04/16 0400 10/04/16 0400 X-Rays, CTs and MRIs . X-RAY CHEST ONE VIEW, PORTABLE IMPRESSION: Chronic increased markings versus mild interstitial pulmonary edema. Focal airspace disease is not seen. Dictated by: Neno Blank M.D. on 10/02/2016 at 8:43 Additional Diagnostics pH ____7.425 - 7.350 7.450 pCO2 ___36.6__ -mmHg 35.0 45.0 pO2 ___44.1__ -mmHg 69.0 116 HCO3- ___23.6__ -mmol/L 22.0 26.0 Assessment & Plan Mr. Gonzáles is a 56-year-old gentleman with past medical history of congestive heart failure, asthma, methamphetamine use, chronic tobacco use, anxiety and depression who is admitted for CHF exacerbation and sepsis. Hospital day 3 #. Severe Sepsis. Present on admission. Ongoing - Sepsis criteria met with tachycardia, tachypnea, and lactic acidosis and leukocytosis - Possible sources include a pneumonia, UTI - Negative: Respiratory virus PCR, Strep pneumo ur ag, legionella ur ag - Documented allergy to penicillin, patient states he was told he would if he took this medication - Stopped vancomycin and metronidazole - Continue levofloxacin #. Congestive heart failure with systolic dysfunction. Present on admission. Ongoing - Echo shows EF of 15-20% with severe global hypokinesis and multiple mural thrombi in LV apex and inferolateral wall - Patient admits to not taking his medications over the past year - CXR showed cardiomegaly - Repeat echo shows LVH with EF 15-20%. Multiple thrombi in LV. 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 Acute respiratory failure with hypoxia. Present on admission. Ongoing - Severe respiratory distress seen in ED with tripoding position - DuoNeb's given with some effect - Solu-Medrol given, diffuse rash resultant most likely secondary to allergy - Hold additional steroid administration - Continue duo nebs every 3 schedule - Supplemental O2 - ABGs for 02/13/2017 showed pH 7.4, PCO2 37, PO2 44.1, HCO3 23.6. - Continue to monitor #. Elevated troponin. Present on admission. Improving - In the setting of CKD - Echo shows severe global hypokinesis - ECG showed evidence of old infarction - Troponin trending down 0.065 on admit to 0.021 - Continue to monitor - Cardiology following #. Acute kidney injury. Present on admission. Active - Records from 3 months ago show normal creatinine - Will hold losartan until back to baseline #. Possible Pneumonia. Present on admission. Ongoing - CXR showed interstitial markings versus pulmonary edema - Procalcitonin elevated at 0.38, 0.36 - Antibiotics as in #1 #. Urinary tract infection. Present on admission. Ongoing - Urinalysis showed packed WBC. Large leukocyte esterase. - Culture pending - Antibiotics as in #1 #. Drug dependence. Present on admission. Ongoing - Patient has history of chronic methamphetamine, alcohol and marijuana use - Monitor for withdrawal symptoms - CIWA protocol #. Hyponatremia. Present on admission. Improving -Most likely secondary to volume overload -Continue to monitor #. Diabetes mellitus type II and present on admission. Ongoing - Blood Sugars remain elevated - A1c 15.5 - High-dose correctional scale insulin - Insulin glargine 25 units at bedtime - Continue to monitor #. Transaminitis. Present on admission. Ongoing - Possibly secondary to chronic alcohol use - AST 927, AST 1017 - HIV from 06/18/2016 nonreactive - Hepatitis panel positive for hep C Ab - RUQ US pending DVT prophylaxis: Subcutaneous heparin GI prophylaxis: Not indicated CODE STATUS: Full code Disposition: Patient currently being diuresed for heart failure. Anticipate several more days of inpatient status pending clinical course. VTE Mechanical Devices: Intermittant Pneumatic CD Resuscitation Status: CPR: Attempt Resuscitation Attending Statement The patient was seen and examined together with Dr. Saenz on 10/04/2016 and I agree with the history, exam and plan as outlined in the note above. LISBET SAENZ DO Oct 04, 2016 18:16 Lawrence Villalta MD Oct 04, 2016 21:03
[2016-10-04] MEDS ORDERED: Insulin GLARgine 100 Unit/mL Syringe SUBQ SCH (21:00)
[2016-10-04] MEDS: MeTOProlol XL 25 mg ER24 Tablet PO SCH (21:10)
--- NOTE | 2016-10-04 21:47 | NUR ---
Nutrition Pt ate solid foods and several Jello on top without issue. No choking or coughing incidents.
[2016-10-05] VITALS (9 sets, daily range): BP systolic 100–117; BP diastolic 67–78; PULSE 101–110; RESP 18–30; O2SAT 90–97
[2016-10-05] MEDS: LORazepam 1 mg Tablet PO PRN (00:34)
[2016-10-05 05:03] LABS: BASOPHILS % (AUTO) 0.1 % (0-3); EOSINOPHILS % (AUTO) 1.1 % (0-5); MONOCYTES % (AUTO) 9.3 % (4-12); Mean Corpuscular Hemoglobin 30.4 pg (27.0-35.0); Mean Corpuscular Volume 96.3 fL (81-100); NEUTROPHILS % (AUTO) 67.2 % (40-74); Platelet Count 254 bil/L (150-400)
[2016-10-05 05:42] LABS: Magnesium 1.8 mg/dL (1.6-2.6)
[2016-10-05] MEDS: levoFLOXacin 750 mg Tablet PO SCH (08:19)
[2016-10-05] MEDS: Multivit-Miner-Folic Acid-Iron Tablet PO SCH (08:20)
[2016-10-05] MEDS: MeTOProlol XL 25 mg ER24 Tablet PO SCH ×2 (08:20→20:39)
[2016-10-05] MEDS: Furosemide 10 mg/mL 4 mL Inj IVPUSH SCH ×2 (08:22→20:38)
[2016-10-05] MEDS: Insulin LISPRO 300 Unit/3 mL Inj SUBQ SCH ×4 (08:46→21:01)
[2016-10-05] MEDS: Albuterol-Ipratropium 3 mL Inhalation Solution NEB PRN (09:45)
--- NOTE | 2016-10-05 11:16 | PCM.PNMED ---
Subjective Date of Service Oct 05, 2016 Subjective Patient is a 56-year-old gentleman with congestive heart failure, asthma, methamphetamine use, chronic tobacco use, anxiety and depression admitted for CHF exacerbation and sepsis. Overnight: Uneventful night, patient requested and acid medication. States that his pain was well controlled with addition of oral morphine 7.5 mg every 4. Today: Patient awake and alert walking in room, just returned from shower. States he feels much better overall he has minimal pain. States the pain he does have is well controlled with his oral morphine as well as Ativan. Is still agreeable to taking anticoagulation for his mural thrombus. Exam Vital Signs Vital Sign - Last Date Time Temp Pulse Resp B/P Pulse Ox O2 Delivery O2 Flow Rate FiO2 10/05/16 09:45 102 22 95 OxyMask 5.00 10/05/16 08:13 114/67 10/05/16 02:49 37.4 Intake and Output 10/04/16 10/04/16 10/05/16 Cumulative From/Thru 15:00 23:00 07:00 10/02/16 04:35 - 10/05/16 05:00 Intake Total 1480 ml 720 ml 8790 ml Output Total 4100 ml 2200 ml 56566 ml Balance -2620 ml -1480 ml -7910 ml Intake Oral 920 ml 720 ml 6230 ml IV Total 560 ml 2560 ml Output Urine Total 4100 ml 2200 ml 88597 ml # Bowel Movements 2 3 Exam General: Patient awake and alert in no acute distress, walking around in room in [facility]. On room air oxygen HEENT: Normocephalic, atraumatic. External ears without defect. PERRLA Cardiovascular: Regular rate and rhythm with no murmurs appreciated Pulmonary: Bilateral slight wheezes, proved from yesterday. No use of accessory muscles. No increased work of breathing. Abdomen: Bowel tones present. Nontender. Soft. Extremities: No clubbing, cyanosis, edema appreciated Skin: Normal temperature and turgor. Multiple excoriations on face and arms. Neurological: Cranial nerves grossly intact. Psychiatric: Alert and oriented to person, place and time. IVs and Medications Medications Reviewed: Medications were reviewed in detail Lab and Diagnostics Result Diagram: 10/05/16 0445 10/05/16 044 X-Rays, CTs and MRIs . X-RAY CHEST ONE VIEW, PORTABLE IMPRESSION: Chronic increased markings versus mild interstitial pulmonary edema. Focal airspace disease is not seen. Dictated by: Neno Blank M.D. on 10/02/2016 at 8:43 X-RAY CHEST ONE VIEW, PORTABLE IMPRESSION: Mildly increased patchy opacity in the medial retrocardiac left lower lung base since yesterday, raising the possibility of mild atelectasis/ aspiration versus early pneumonia. Recommend clinical correlation and continued radiographic followup Dictated by: Sage Dennis M.D. on 10/03/2016 at 7:20 PROCEDURE: US ABDOMEN IMPRESSION: 1. Increased hepatic echogenicity with coarse sonographic echotexture compatible with steatosis. 2. Cholelithiasis without definite evidence of cholecystitis. Evaluation limited due to incomplete distention of the gallbladder. Dictated by: Kemal Chauhan M.D. on 10/04/2016 at 18:07 X-RAY CHEST ONE VIEW, PORTABLE IMPRESSION: No acute cardiopulmonary disease. Dictated by: Jacob NIXON Interpreted: Modesta Rutledge MD on 10/04/2016 at 13:39 Cardiac Echo Impressions . Echocardiogram Report Interpretation Summary 1) Mild concentric left ventricular hypertrophy with normal size and severely reduced function (EF 15-20%). 2) Multiple mural thrombi noted in LV apex and along inferolateral wall. 3) Mild to moderately enlarged right ventricle with mildly to moderate reduced function. 4) There is a moderate left-sided pleural effusion. 5) Elevated right sided filling pressures. 6) Compared to the Echo done 06/16/2016, multiple mural thrombi are present in the LV. Additional Diagnostics pH ____7.425 - 7.350 7.450 pCO2 ___36.6__ -mmHg 35.0 45.0 pO2 ___44.1__ -mmHg 69.0 116 HCO3- ___23.6__ -mmol/L 22.0 26.0 Assessment & Plan Mr. Gonzáles is a 56-year-old gentleman with past medical history of congestive heart failure, asthma, methamphetamine use, chronic tobacco use, anxiety and depression who is admitted for CHF exacerbation and sepsis. Hospital day 4 1. Left ventricular mural thrombosis. Present on admission. Ongoing -Echocardiogram showed multiple mural thrombi noted in LV apex and along inferolateral wall -Continue Lovenox, warfarin bridge initiated today, pharmacy to dose joel 2. Severe Sepsis. Present on admission. Resolving - Sepsis criteria met with tachycardia, tachypnea, and lactic acidosis and leukocytosis - Remains tachycardiac with regular respiratory rate lactic acidosis resolved, WBC trending down - Possible sources include a pneumonia, UTI - Urine culture positive staph aureus, pansensitive - Negative: Respiratory virus PCR, Strep pneumo ur ag, legionella ur ag - Documented allergy to penicillin, patient states he was told he would if he took this medication - Stopped vancomycin and metronidazole - Continue levofloxacin,will plan to discontinue up on discharge 3. Congestive heart failure with systolic dysfunction. Present on admission. Ongoing - Echo shows EF of 15-20% with severe global hypokinesis - Patient admits to not taking his many of his medications over the past year - CXR showed cardiomegaly - Cardiology following, their recommendations are appreciated - Continue Lasix 40mg - Continue digoxin, metoprolol - Per cardiology started spironolactone, started losartan 4. Acute respiratory failure with hypoxia. Present on admission. Resolved - Severe respiratory distress seen in ED with tripoding position - DuoNeb's given with some effect - Solu-Medrol given, diffuse rash resultant most likely secondary to allergy - Hold additional steroid administration - Continue duo nebs every 3 schedule - Patient oxygenating well on room air - ABGs for 02/13/2017 showed pH 7.4, PCO2 37, PO2 44.1, HCO3 23.6. - Continue to monitor 5. Elevated troponin. Present on admission. Improving - In the setting of CKD - Echo shows severe global hypokinesis - ECG showed evidence of old infarction - Troponin trending down 0.065 on admit to 0.021 - Continue to monitor - Cardiology following 6. Acute kidney injury. Present on admission. Active - Records from 3 months ago show normal creatinine - Will hold losartan until back to baseline 7. Possible Pneumonia. Present on admission. Ongoing - CXR showed interstitial markings versus pulmonary edema - Procalcitonin this trended down from 0.36-0.16 - Antibiotics as in #2 - Continue to monitor 8. Urinary tract infection. Present on admission. Ongoing - Urinalysis showed packed WBC. Large leukocyte esterase. - Urine culture and sensitivities as a number to - Antibiotics as in #2 9. Drug dependence. Present on admission. Ongoing - Patient has history of chronic methamphetamine, alcohol and marijuana use - Monitor for withdrawal symptoms - CIWA protocol 10. Hyponatremia. Present on admission. Ongoing -Most likely secondary to volume overload -Continue to monitor 11. Diabetes mellitus type II and present on admission. Ongoing - Blood Sugars remain elevated - A1c 15.5 - High-dose correctional scale insulin - Insulin glargine 25 units at bedtime - Continue to monitor 12. Transaminitis. Present on admission. Ongoing - Possibly secondary to chronic alcohol use - AST 927, AST 1017 - HIV from 06/18/2016 nonreactive - Hepatitis panel positive for hep C Ab - RUQ US showed possible steatosis, possible cholelithiasis without definite evidence of cholecystitis. - Dictated monitor DVT prophylaxis: Patient on Lovenox, with bridge to warfarin GI prophylaxis: Not indicated CODE STATUS: Full code Disposition: Patient currently being diuresed for heart failure. Patient began bridge from Lovenox to warfarin today, anticipate discharge tomorrow. VTE Mechanical Devices: Intermittant Pneumatic CD Resuscitation Status: CPR: Attempt Resuscitation Attending Statement The patient was seen and examined together with Dr. Saenz on 10/05/2016 and I agree with the history, exam and plan as outlined in the note above. LISBET SAENZ DO Oct 05, 2016 11:16 Lawrence Villalta MD Oct 05, 2016 20:38
[2016-10-05 11:42] LABS: INR 1.32 ratio
--- NOTE | 2016-10-05 13:01 | PROG NOTE ---
[address] [address] PROGRESS NOTE PATIENT: ANTONELLA LOUIS : 1960 MR#: [id number] ADMIT: 10/02/2016 JOB ID: [id number] DATE: 10/05/2016 PROGRESS NOTE: The patient continues to be tachycardiac and moderately tachypneic. He is awake today and seems cooperative. He has been up and about in the room back and forth to the bathroom without too much difficulty. EXAM: His heart rate remains in the 100-110 range. Blood pressure has been ranging in the 110 to 125 range. Room air O2 sat earlier this morning was 93%. Jugular venous pressure appears mild to moderately increased. Lung crum demonstrate some bibasilar rales. Cardiac auscultation reveals a regular rate with a prominent ventricular summation gallop. I do not hear any cardiac murmurs. Distal extremities are warm and well perfused. Distal posterior tibial pulses are present. He does not have significant lower extremity edema. Skin is remarkable for diffuse telangiectasias over his chest wall and arms, and to a certain extent, his legs. LABORATORY DATA: Shows an improvement in his white count of 14,000. His hemoglobin is normal at 13.1. Chemistries demonstrates a normal creatinine of 1.07. He remains mildly hyponatremic. Blood sugars have been poorly controlled ranging in the 300 to 400 range. Lactic acid level is back to normal, and hepatic transaminase values are improving as well. DISCUSSION: This gentleman is gradually improving. I am going to increase his metoprolol medication to 50 q.12 h. since his blood pressure should be able to tolerate that. Will work to increase his losartan medication as well. I think it is reasonable to transition him tomorrow to oral furosemide or perhaps torsemide. Long-term prognosis is quite guarded related to his history of noncompliance and drug abuse. Once again, I think perhaps oncology social work or psych consult may be useful termite treater.
--- NOTE | 2016-10-05 16:04 | NUR ---
Refusal of care Pt refused to wear his pulse oximeter this morning. Allowed this RN to put it on whenever I was in the room but then asked me to remove it when I left. Sats have been around 90-95% with each check. Pt wears his mask (4L O2) sometimes but other times refuses. Pt refused to let UNDERWRITING SUPPORT MANAGER provide hygiene care but later agreed. Refused to participate with physical therapy despite 2 attempts. Took all meds with no issues and ate all meals.
--- NOTE | 2016-10-05 18:01 | PCM.CONPHA ---
Subjective Date of Service: Oct 05, 2016 heart failure Reason for Pharmacy Consult: Anticoagulation Management Objective Vital Signs Date Time Temp Pulse Resp B/P Pulse Ox O2 Delivery O2 Flow Rate FiO2 10/05/16 16:48 36.4 101 30 107/75 93 Room Air 10/05/16 12:59 106 10/05/16 12:42 105 10/05/16 12:18 36.9 107 30 100/68 90 Room Air 10/05/16 10:30 Supplement Oxygen 10/05/16 09:45 102 22 95 OxyMask 5.00 10/05/16 08:13 108 18 114/67 93 Room Air 10/05/16 05:00 Supplement Oxygen 10/05/16 04:31 110 10/05/16 02:49 37.4 109 20 109/75 90 Room Air 10/04/16 23:45 36.8 107 20 118/83 95 Room Air 10/04/16 21:02 36.2 110 20 119/79 93 Room Air 10/04/16 21:02 Supplement Oxygen Intake and Output 10/03/16 10/04/16 10/05/16 00:00 00:00 00:00 Intake Total 2204 ml 3400 ml 2466 ml Output Total 3450 ml 4000 ml 7050 ml Balance -1246 ml -600 ml -4584 ml Weight (Kilograms): 90.000 Height (Feet): 5 Height (Inches): 10.00 Test 10/02/16 04:40 10/02/16 09:00 10/02/16 09:14 10/02/16 09:26 Pro-B-Type Natriuretic Peptide 8676pg/mL (0-210) Hold Morris Top Tube Received (Received) Urine Legionella pneumophilia Ag Negative (Negative) Urine Color Yellow (YELLOW) Urine Appearance Slightly cloudy Urine pH 5.0 (5.0-8.0) Urine Specific [place] 1.019 (1.003-1.035) Urine Protein 30mg/dL (NEG,TRACE) Urine Glucose (UA) 500mg/dL (NEGATIVE) Urine Ketones Negativemg/dL (NEGATIVE) Urine Occult Blood Moderate (NEGATIVE) Urine Nitrite Negative (NEGATIVE) Urine Bilirubin Negative (NEGATIVE) Urine Urobilinogen Normalmg/dL (NORMAL) Urine Leukocyte Esterase Large (NEGATIVE) Urine RBC 0-2/hpf (0-2) Urine WBC Packed/hpf (0-5) Urine Epithelial Cells Occasional/hpf (NONE-MOD) Urine Crystals None seen (NONE SEEN) Urine Bacteria Moderate/hpf (NONE-FEW) Urine Hyaline Casts None/lpf (NONE) Urine Granular Casts None seen (NONE SEEN) Urine Waxy Casts None seen (NONE SEEN) Urine Red Blood Cell Casts None seen (NONE SEEN) Urine White Blood Cell Casts None seen (NONE SEEN) Urine Mucus None seen (None Seen) Urine Trichomonas None seen (NONE SEEN) Urine Yeast None (NONE SEEN) Urinalysis Comment None Urine Culture Reflexed Indicated Hemoglobin A1c 15.5% (4.8-5.6) Phosphorus Level 3.6mg/dL (2.5-4.9) Total Creatine Kinase 107U/L (21-232) Creatine Kinase MB 4.1ng/mL (0.0-10.4) Creatine Kinase MB % % (0.0-5.0) Lipase 14U/L (13-60) Thyroid Stimulating Hormone (TSH) 1.080uIU/mL (0.450-4.500) Test 10/02/16 15:05 10/04/16 04:00 10/05/16 00:30 10/05/16 04:45 Troponin T 0.021ug/L (0.0-0.011) Hepatitis A IgM Antibody Negative (Negative) Hepatitis B Surface Antigen Negative (Negative) Hepatitis B Core IgM Antibody Negative (Negative) Hepatitis C Antibody >11.0s/co ratio Hepatitis C Antibody Comment Comment (.) Vancomycin Level Trough 16.4mcg/mL Hold Urine Received (Received) White Blood Count 14.7th/mm3 (3.8-10.1) Red Blood Count 4.31mil/mm3 (4.40-5.80) Hemoglobin 13.1g/dL (13.8-17.2) Hematocrit 41.5% (41.0-50.0) Mean Corpuscular Volume 96.3fL (81-100) Mean Corpuscular Hemoglobin 30.4pg (27.0-35.0) Mean Corpuscular Hemoglobin Concent 31.6% (32.0-37.0) Red Cell Distribution Width 15.7% (12.3-15.4) Platelet Count 254bil/L (150-400) Neutrophils (%) (Auto) 67.2% (40-74) Lymphocytes (%) (Auto) 21.9% (14-46) Monocytes (%) (Auto) 9.3% (4-12) Eosinophils (%) (Auto) 1.1% (0-5) Basophils (%) (Auto) 0.1% (0-3) Sodium Level 132mEq/L (134-144) Potassium Level 4.8mEq/L (3.5-5.2) Chloride Level 95mEq/L (97-108) Carbon Dioxide Level 24mmol/L (18-29) Blood Urea Nitrogen 29mg/dL (6-24) Creatinine 1.07mg/dL (0.76-1.27) Estimat Glomerular Filtration Rate 76mL/min (>59) Glucose Level 333mg/dL (60-99) Lactic Acid Level 1.7mmol/L (0.4-2.0) Calcium Level 9.1mg/dL (8.5-10.1) Magnesium Level 1.8mg/dL (1.6-2.6) Total Bilirubin 0.7mg/dL (0.0-1.2) Aspartate Amino Transf (AST/SGOT) 154U/L (0-50) Alanine Aminotransferase (ALT/SGPT) 454U/L (0-44) Alkaline Phosphatase 127U/L (25-150) Total Protein 6.2g/dL (6.4-8.4) Albumin 3.0g/dL (3.4-5.0) Procalcitonin 0.16ng/mL (0.00-0.08) Digoxin Level 0.4nG/mL (0.9-2.0) Test 10/05/16 11:05 Prothrombin Time 14.2sec (8.1-12.5) Prothromb Time International Ratio 1.32ratio Assessment/Plan Assessment/Plan Warfarin per Rx Indication: Left Ventricular Thrombus INR Goal 2 - 3 Today's INR: 1.32; on enoxaparin 100mg bid since 10/02 Will start with 5mg today; Daily INR Rx will continue to monitor & adjust dose as needed Uriel Hill PharmD Oct 05, 2016 18:01
[2016-10-05] MEDS ORDERED: MeTOProlol XL 25 mg ER24 Tablet PO SCH (20:30)
[2016-10-05] MEDS ORDERED: Insulin GLARgine 100 Unit/mL Syringe SUBQ SCH (21:00)
--- NOTE | 2016-10-05 23:33 | NUR ---
Oxygenation Pt wearing NC of 4L oxygen about half of the time. 86% Sp02 on RA. Low end tachycardia at 101 BPM.
[2016-10-06] VITALS (7 sets, daily range): BP systolic 90–106; BP diastolic 49–73; PULSE 90–99; RESP 20; O2SAT 94–100
[2016-10-06] MEDS: LORazepam 1 mg Tablet PO PRN (00:08)
[2016-10-06 04:28] LABS: BASOPHILS % (AUTO) 0.2 % (0-3); EOSINOPHILS % (AUTO) 1.3 % (0-5); MONOCYTES % (AUTO) 8.2 % (4-12); Mean Corpuscular Hemoglobin 30.2 pg (27.0-35.0); Mean Corpuscular Volume 95.5 fL (81-100); NEUTROPHILS % (AUTO) 63.8 % (40-74); Platelet Count 285 bil/L (150-400)
[2016-10-06 05:04] LABS: Magnesium 1.7 mg/dL (1.6-2.6)
[2016-10-06] MEDS: Furosemide 10 mg/mL 4 mL Inj IVPUSH SCH (08:39)
[2016-10-06] MEDS: Multivit-Miner-Folic Acid-Iron Tablet PO SCH (08:42)
[2016-10-06] MEDS: levoFLOXacin 750 mg Tablet PO SCH (08:42)
[2016-10-06] MEDS: MeTOProlol XL 25 mg ER24 Tablet PO SCH (08:44)
[2016-10-06] MEDS: Insulin LISPRO 300 Unit/3 mL Inj SUBQ SCH ×2 (09:00→13:21)
--- NOTE | 2016-10-06 10:41 | NUR ---
Evaluation completed. Please go to "Notes" then click on "Assessments and Notes" (bottom left corner of screen). Then select appropriate discipline tab on top of screen.
[2016-10-06 12:52] LABS: INR 1.34 ratio
--- NOTE | 2016-10-06 15:00 | PCM.PHAPRO ---
Progress heart failure WARFARIN INDICATION: LV Mural Thrombus Concurrent tx: Enoxaparin Pertinent Hx: CHF, ? EtOH overuse, elevated baseline INR, hypoalbuminemia a/ Likely lowered tolerance to warfarin based on above history p/ Start with 5mg/day and follow Will need teaching prior to discharge (day) 1 2 3 4 5 6 7 8 9 10 [facility] Date INR 1.34 Warf Dose 5 Herbert Ramirez S Pharm D Oct 06, 2016 15:00
--- NOTE | 2016-10-06 16:03 | NUR ---
Social work Note: AMA Data& Assessment: Per pt is choosing to leave AMA. SW met with pt at bedside to check in and assess for any unmet needs. Pt is frustrated with how long his hospitalization is taking. Pt anxious to discharge home. Pt roommates coming to transport him home. Pt declined [facility] caregiving, Home Health or any other resources. Pt explained his roommates help take care of him and anything he needs. Pt declines any other needs. No other needs identified. Plan: Pt leaving AMA. Pt declines any resources. Pt leaving POV. Pt declines any other needs. No other needs identified. SHEBA Green
[2016-10-06] MEDS ORDERED: FURO-128 PO (16:29)
[2016-10-06] MEDS ORDERED: WARF5TAB7 PO (16:33)
[2016-10-06] MEDS ORDERED: INSLIS SUBQ (16:33)
[2016-10-06] MEDS ORDERED: INSU100V7 SUBQ (16:33)
[2016-10-06] MEDS ORDERED: METO-272 PO ×2 (16:35→16:50)
[2016-10-06] MEDS ORDERED: LOV100 SUBQ ×2 (16:38→16:39)
--- NOTE | 2016-10-06 16:47 | NUR ---
AMA Pt discussed condition, diagnosis, and medications with 3 separate MDs throughout the day but around 1600 decided he was going to leave AMA. Physicians discussed implications of leaving AMA. Pt aware of potential risks including cardiac complications, pulmonary embolism, or . Risks and benefits discussed in detail. Pt signed AMA form which states he is aware of these risks and takes responsibility. Telemetry removed. IV removed. Pt was escorted down to his friend's car by a staff member in a wheelchair.
--- NOTE | 2016-10-06 16:56 | PCM.DIMED ---
LISBET SAENZ DO 10/06/16 1656: Discharge Instructions Date of Service Oct 06, 2016 Dates of Hospitalization Oct 02, 2016 at 06:32 Discharge Diagnosis Discharge Diagnosis . 1. Left ventricular mural thrombosis 2. Severe Sepsis 3. Congestive heart failure with systolic dysfunction 4. Acute respiratory failure with hypoxia 5. Elevated troponin 6. Acute kidney injury 7. Possible Pneumonia 8. Urinary tract infection 9. Drug dependence 10. Hyponatremia 11. Diabetes mellitus type II and present on admission 12. Transaminitis Medication Instructions Please continue to take all your regularly prescribed medications from her primary care provider, except for the diabetes medications to which you have responded poorly. I am giving you many prescriptions please fill them as soon as possible from your pharmacy. To start I am giving her a prescription for a medication called Lovenox please inject 100 mg of this medication into your skin twice a day for the next 5 days , the pharmacist will be able to assist you in instructing U on how to administer this medication. This medication is a anticoagulant, what this means is that this will thin your blood and help break up the blood clot which was found in your heart. As this medication is expensive and your insurance will not cover this for a prolonged period of time we are also giving you a prescription for warfarin also known as Coumadin. Please take 5 mg of this medication by mouth every day until told to change the dose. It is extremely important that you follow up in the Coumadin clinic, the pharmacy at [facility] or urgent care to monitor your Coumadin levels. Please do this daily until told otherwise by a physician or a healthcare provider. As your blood sugar levels were wildly out of control during her hospital admission and leading up to your admission your A1c was 15 we are starting you on a long acting basal insulin: Lantus. Please take 35 units of Lantus injected into your skin around her abdominal area every night before bed. Please do this daily. In addition to Lantus I am also prescribing you a short acting insulin called lispro. You are to take this medication before meals approximately 10-15 minutes before meals and you are to check your blood sugars before meals and follow the following correctional dose scale. If before your meals your blood sugar is less than 151 do not inject any insulin lispro. 0 units. If your blood sugar levels are 151-175 please inject one unit of insulin lispro. If your blood sugar level is 176-200 please inject 2 units of insulin lispro. If your blood sugar levels are 201-225 please inject 3 units of lispro. If your blood sugar levels are 226-250 please inject 4 units of lispro. If your blood sugar levels are 251-275 please inject 5 units of lispro. If your blood sugar levels are 276-300 please inject 6 units of lispro. If your blood sugar levels are 301-325 please inject 7 units. If your blood sugar levels are 326th 250 please inject 8 units. If your blood sugars at 351-375 please inject 9 units. If your blood sugar levels are 376- 400 please inject 10 units. If your blood sugar levels are greater than 400 please inject 12 units of lispro. To help control your blood pressure and giving a medication called furosemide also known as Lasix. Please take 40 mg of this medication by mouth 2 times a day once in the morning once in the evening for the next 30 days. I am also giving a medication called metoprolol. Please take 75 mg of this medication every day for the next 30 days. Finally I must reemphasize that you are leaving AGAINST MEDICAL ADVICE I strongly encourage you to follow up with your primary care provider and your television script writer as soon as possible as continual dosing of these medications may be needed. As well as to ensure the resolution of the extremely large clot found in your heart. Please return to the emergency room if you develop any new or worsening symptoms. Diet Low fat, Low Sodium, Heart Healthy, Diabetic, Renal Diet Activity Limited until seen by PCP Call your provider Fever or Chills, Shortness of breath, Bleeding, Chest pain, Vomitting, Excessive diarrhea, Weakness (unilateral) Patient Instructions Patient leaving AGAINST MEDICAL ADVICE. Please follow up with the Coumadin clinic and your primary care provider and her television script writer as soon as possible Follow-up plan No follow-up plan, patient MALOUA Lawrence Villalta MD 10/07/16 0641: Discharge Instructions Attending's Statement The patient was seen and examined independently on 10/06/2016 and case discussed with Dr. Saenz. I agree with the discharge instructions as outlined in the note above. patient left AMA ,instructions and prescriptions offered LISBET SAENZ DO Oct 06, 2016 16:56 Lawrence Villalta MD Oct 07, 2016 06:41
--- NOTE | 2016-10-06 17:25 | NUR ---
Medications Pt left AMA without taking his home medications with him which were being stored in the downstairs pharmacy. Patient was aware that staff were not ready for him to leave so soon and that not everything would be in place. Pt understood and accepted responsibility. The phone number listed on patient face sheet was called but there was no answer and no opportunity to leave a voicemail.
[2016-10-06] MEDS ORDERED: Insulin GLARgine 100 Unit/mL Syringe SUBQ SCH (21:00)
--- NOTE | 2016-10-07 18:49 | PCM.DC.MED ---
Discharge Summary Date of Service Oct 07, 2016 Dates of Hospitalization Date of Hospital Admission Oct 02, 2016 at 06:32 Date of Discharge: Oct 06, 2016 Providers: Admitting Physician: Frankie Bui MD Primary Care Physician: Leticia Jacobs MD Attending Physician: Frankie Bui MD Diagnosis at Time of Discharge Diagnosis at Time of Discharge . 1. Left ventricular mural thrombosis 2. Severe Sepsis 3. Congestive heart failure with systolic dysfunction 4. Acute respiratory failure with hypoxia 5. Elevated troponin 6. Acute kidney injury 7. Possible Pneumonia 8. Urinary tract infection 9. Drug dependence 10. Hyponatremia 11. Diabetes mellitus type II and present on admission 12. Transaminitis Consultations Cardiology Dr. Nilson Andrew Procedures XRay, CTs & MRIs . X-RAY CHEST ONE VIEW, PORTABLE IMPRESSION: Chronic increased markings versus mild interstitial pulmonary edema. Focal airspace disease is not seen. Dictated by: Neon Blank M.D. on 10/02/2016 at 8:43 X-RAY CHEST ONE VIEW, PORTABLE IMPRESSION: Mildly increased patchy opacity in the medial retrocardiac left lower lung base since yesterday, raising the possibility of mild atelectasis/ aspiration versus early pneumonia. Recommend clinical correlation and continued radiographic followup Dictated by: Sage Dennis M.D. on 10/03/2016 at 7:20 PROCEDURE: US ABDOMEN IMPRESSION: 1. Increased hepatic echogenicity with coarse sonographic echotexture compatible with steatosis. 2. Cholelithiasis without definite evidence of cholecystitis. Evaluation limited due to incomplete distention of the gallbladder. Dictated by: Kemal Chauhan M.D. on 10/04/2016 at 18:07 X-RAY CHEST ONE VIEW, PORTABLE IMPRESSION: No acute cardiopulmonary disease. Dictated by: Jacob Mulligan [facility] Interpreted: Modesta Rutledge MD on 10/04/2016 at 13:39 Cardiac Echo Impression . Echocardiogram Report Interpretation Summary 1) Mild concentric left ventricular hypertrophy with normal size and severely reduced function (EF 15-20%). 2) Multiple mural thrombi noted in LV apex and along inferolateral wall. 3) Mild to moderately enlarged right ventricle with mildly to moderate reduced function. 4) There is a moderate left-sided pleural effusion. 5) Elevated right sided filling pressures. 6) Compared to the Echo done 06/16/2016, multiple mural thrombi are present in the LV. Other Diagnostics pH ____7.425 - 7.350 7.450 pCO2 ___36.6__ -mmHg 35.0 45.0 pO2 ___44.1__ -mmHg 69.0 116 HCO3- ___23.6__ -mmol/L 22.0 26.0 Brief History History and physical per Dr. Saenz for 10/02/2016 Mr. Gonzáles is a 56-year-old male with past medical history of congestive heart failure, asthma, methamphetamine use, chronic tobacco use, anxiety and depression presented to [facility] ED secondary to SOB 3 days. At time of interview patient somnolent with oxygen mask in place, able to answer questions in 1-2 word sentences though unable to provide a detailed history of present illness. The overall picture seems to be that over the last 3 days he has become increasingly short of breath, unknown if he has been compliant with his medications. He endorses continual methamphetamine as well as marijuana use during this time (no mask today). He endorses a cough during this time productive for white sputum, denies fevers denies sick contacts. Unknown about immunization status, unknown travel history unknown exposure history. He denies cardiac chest pain, endorses a shortness of breath with pain on deep inhalation. He endorses a left upper and lower abdominal/flank pain which increases with palpation, further stating that pain has always been there. Patient was hospitalized 06/16/2016 secondary to decompensated heart failure and cardiomyopathy of unknown etiology. LVEF seen to be 15-20% with severe global hypokinesis, though no significant valvular abnormalities found. The plan was to do cardiac catheterization for an ischemic workup however patient was not compliant with this plan or with medications. He followed up with cardiology on 07/07/[address] Phelps and LYLE Cardoso. Still showing signs of cardiomyopathy and sinus tachycardia. His instructions were to continue taking his furosemide 40 mg twice a day, losartan 0.5 milligrams daily and digoxin 0.25 mg daily and metoprolol 12.5 mg daily. He refused metoprolol and other medications stating that he would decide for himself if it would be good or not for him. The only vacations he was agreeable to take at that time was digoxin, Lasix and losartan. Per cardiology note patient is in need of an ischemic workup with cardiac catheterization however patient was not interested in this treatment plan or wearing a LifeVest. And only minimally compliant with cardiac medications. In the ED patient received DuoNeb treatment with benefit. Admitted to [facility]. A comprehensive review of systems was conducted with the patient and found to be negative except as above in the history of present illness Hospital Course Mr. Gonzáles is a 56-year-old gentleman with past medical history of congestive heart failure, asthma, methamphetamine use, chronic tobacco use, anxiety and depression who is admitted for CHF exacerbation and sepsis. Patient left AGAINST MEDICAL ADVICE, please see discharge instructions. 1. Left ventricular mural thrombosis. -Echocardiogram showed multiple mural thrombi noted in LV apex and along inferolateral wall -Continued Lovenox, warfarin bridge -At time of AMA discharge patient provided with prescriptions for both Lovenox and warfarin and strict instructions/recommendations to follow up with Coumadin clinic. 2. Severe Sepsis. - Sepsis criteria met with tachycardia, tachypnea, and lactic acidosis and leukocytosis - Remained tachycardiac with regular respiratory rate lactic acidosis resolved, WBC trending down through hospital stay - Possible sources include a pneumonia, UTI - Urine culture positive staph aureus, pansensitive - Negative: Respiratory virus PCR, Strep pneumo ur ag, legionella ur ag - Documented allergy to penicillin, patient states he was told he would if he took this medication - Stopped vancomycin and metronidazole - Continued levofloxacin,will plan to discontinue this medication upon discharge , however patient left AMA 3. Congestive heart failure with systolic dysfunction. - Echo showed EF of 15-20% with severe global hypokinesis - Patient admits to not taking his many of his medications over the past year - CXR showed cardiomegaly - Cardiology following, their recommendations are appreciated - Continue Lasix 40mg - Continue digoxin, metoprolol - Per cardiology started spironolactone, started losartan 4. Acute respiratory failure with hypoxia. - Severe respiratory distress seen in ED with tripoding position - DuoNeb's given with some effect - Solu-Medrol given, diffuse rash resultant most likely secondary to allergy - Hold additional steroid administration - Continue duo nebs every 3 schedule - Patient oxygenating well on room air - ABGs for 02/13/2017 showed pH 7.4, PCO2 37, PO2 44.1, HCO3 23.6. 5. Elevated troponin. - In the setting of CKD - Echo shows severe global hypokinesis - ECG showed evidence of old infarction - Troponin trending down 0.065 on admit to 0.021 - Cardiology outpatient throughout admission 6. Acute kidney injury. - Records from 3 months ago show normal creatinine - Will hold losartan until back to baseline, restarted when patient left AMA 7. Possible Pneumonia. - CXR showed interstitial markings versus pulmonary edema - Procalcitonin this trended down from 0.36-0.16 - Antibiotics as in #2 8. Urinary tract infection. - Urinalysis showed packed WBC. Large leukocyte esterase. - Urine culture and sensitivities as a number to - Antibiotics as in #2 9. Drug dependence. Present on admission. Ongoing - Patient has history of chronic methamphetamine, alcohol and marijuana use - Monitored for withdrawal symptoms - CIWA protocol 10. Hyponatremia. -Most likely secondary to volume overload 11. Diabetes mellitus type II and present on admission. - Blood Sugars remain very elevated throughout stay - A1c 15.5 - High-dose correctional scale insulin - Prescription for Insulin glargine 35 units at time of AMA discharge - Ascription for Insulin lispro given for correctional scale given at time of AMA discharge 12. Transaminitis. - Possibly secondary to chronic alcohol use - AST 927, AST 1017 - HIV from 06/18/2016 nonreactive - Hepatitis panel positive for hep C Ab - RUQ US showed possible steatosis, possible cholelithiasis without definite evidence of cholecystitis. Exam Vital Signs (Last) Date Time Temp Pulse Resp B/P Pulse Ox O2 Delivery O2 Flow Rate FiO2 10/06/16 14:10 90 99/62 10/06/16 12:14 36.7 20 95 Nasal Cannula 10/06/16 07:58 4.00 Test 10/02/16 04:40 10/02/16 09:00 10/02/16 09:14 10/02/16 09:26 Pro-B-Type Natriuretic Peptide 8676pg/mL (0-210) Hold Morris Top Tube Received (Received) Urine Legionella pneumophilia Ag Negative (Negative) Urine Color Yellow (YELLOW) Urine Appearance Slightly cloudy Urine pH 5.0 (5.0-8.0) Urine Specific [place] 1.019 (1.003-1.035) Urine Protein 30mg/dL (NEG,TRACE) Urine Glucose (UA) 500mg/dL (NEGATIVE) Urine Ketones Negativemg/dL (NEGATIVE) Urine Occult Blood Moderate (NEGATIVE) Urine Nitrite Negative (NEGATIVE) Urine Bilirubin Negative (NEGATIVE) Urine Urobilinogen Normalmg/dL (NORMAL) Urine Leukocyte Esterase Large (NEGATIVE) Urine RBC 0-2/hpf (0-2) Urine WBC Packed/hpf (0-5) Urine Epithelial Cells Occasional/hpf (NONE-MOD) Urine Crystals None seen (NONE SEEN) Urine Bacteria Moderate/hpf (NONE-FEW) Urine Hyaline Casts None/lpf (NONE) Urine Granular Casts None seen (NONE SEEN) Urine Waxy Casts None seen (NONE SEEN) Urine Red Blood Cell Casts None seen (NONE SEEN) Urine White Blood Cell Casts None seen (NONE SEEN) Urine Mucus None seen (None Seen) Urine Trichomonas None seen (NONE SEEN) Urine Yeast None (NONE SEEN) Urinalysis Comment None Urine Culture Reflexed Indicated Hemoglobin A1c 15.5% (4.8-5.6) Phosphorus Level 3.6mg/dL (2.5-4.9) Total Creatine Kinase 107U/L (21-232) Creatine Kinase MB 4.1ng/mL (0.0-10.4) Creatine Kinase MB % % (0.0-5.0) Lipase 14U/L (13-60) Thyroid Stimulating Hormone (TSH) 1.080uIU/mL (0.450-4.500) Test 10/02/16 15:05 10/04/16 04:00 10/05/16 00:30 10/05/16 04:45 Troponin T 0.021ug/L (0.0-0.011) Hepatitis A IgM Antibody Negative (Negative) Hepatitis B Surface Antigen Negative (Negative) Hepatitis B Core IgM Antibody Negative (Negative) Hepatitis C Antibody >11.0s/co ratio Hepatitis C Antibody Comment Comment (.) Vancomycin Level Trough 16.4mcg/mL Hold Urine Received (Received) Lactic Acid Level 1.7mmol/L (0.4-2.0) Digoxin Level 0.4nG/mL (0.9-2.0) Test 10/06/16 04:19 10/06/16 12:30 White Blood Count 14.9th/mm3 (3.8-10.1) Red Blood Count 4.44mil/mm3 (4.40-5.80) Hemoglobin 13.4g/dL (13.8-17.2) Hematocrit 42.4% (41.0-50.0) Mean Corpuscular Volume 95.5fL (81-100) Mean Corpuscular Hemoglobin 30.2pg (27.0-35.0) Mean Corpuscular Hemoglobin Concent 31.6% (32.0-37.0) Red Cell Distribution Width 15.7% (12.3-15.4) Platelet Count 285bil/L (150-400) Neutrophils (%) (Auto) 63.8% (40-74) Lymphocytes (%) (Auto) 25.8% (14-46) Monocytes (%) (Auto) 8.2% (4-12) Eosinophils (%) (Auto) 1.3% (0-5) Basophils (%) (Auto) 0.2% (0-3) Sodium Level 135mEq/L (134-144) Potassium Level 4.6mEq/L (3.5-5.2) Chloride Level 95mEq/L (97-108) Carbon Dioxide Level 26mmol/L (18-29) Blood Urea Nitrogen 29mg/dL (6-24) Creatinine 1.16mg/dL (0.76-1.27) Estimat Glomerular Filtration Rate 69mL/min (>59) Glucose Level 228mg/dL (60-99) Calcium Level 9.5mg/dL (8.5-10.1) Magnesium Level 1.7mg/dL (1.6-2.6) Total Bilirubin 0.7mg/dL (0.0-1.2) Aspartate Amino Transf (AST/SGOT) 80U/L (0-50) Alanine Aminotransferase (ALT/SGPT) 320U/L (0-44) Alkaline Phosphatase 112U/L (25-150) Total Protein 6.2g/dL (6.4-8.4) Albumin 2.9g/dL (3.4-5.0) Procalcitonin 0.20ng/mL (0.00-0.08) Prothrombin Time 14.4sec (8.1-12.5) Prothromb Time International Ratio 1.34ratio Discharge Medications Discharge Medications ([Prickly Pear]) Unknown Dose PO DAILY (Reported) Digoxin (Digoxin) 250 Mcg Tablet 0.25 MG PO DAILY@12 Prescribed by: NICK MATIAS MD Enoxaparin (Lovenox) 100 Mg/Ml Syringe 100 MG SUBQ BID Prescribed by: LISBET SAENZ DO Furosemide (Lasix) 40 Mg Tablet 40 MG PO BID Prescribed by: LISBET SAENZ DO Insulin Glargine (Lantus U100 Insulin Vial) 100 Unit/Ml Vial 35 UNIT SUBQ HS Prescribed by: LISBET SAENZ DO Insulin Human Lispro (HumaLOG U100 Insulin Vial) 100 Unit/Ml Unit 0 UNIT SUBQ WMHS Check blood sugars before meals and at bedtime. Use correction factor only before meals. Blood Sugar Lispro Correction: <151, 0 units; 151-175, 1 unit; 176-200, 2 units; 201-225, 3 units; 226-250, 4 units; 251-275, 5 units; 276-300 , 6 units; 301-325, 7 units; 326-350, 8 units; 351-375, 9 units; 376-400, 10 units; >400, 12 units. Prescribed by: LISBET SAENZ DO Losartan Potassium (Cozaar) 25 Mg Tablet 12.5 MG PO DAILY Prescribed by: NICK MATIAS MD Metoprolol Succinate ER (Metoprolol Succinate ER) 50 Mg Tab.er.24h 75 MG PO DAILY Prescribed by: LISBET SAENZ DO Potassium Chloride ER (Klor-Con M20) 20 Meq Tablet 20 MEQ PO DAILY Prescribed by: NICK MATIAS MD Warfarin Sodium (Warfarin Sodium) 5 Mg Tablet 5 MG PO DAILY Prescribed by: LISBET SAENZ DO As needed Hydroxyzine Pamoate (HydrOXYzine Pamoate) 50 Mg Capsule 50 MG PO HS PRN PRN For Insomnia (Reported) Lorazepam (Lorazepam) 1 Mg Tablet 1 MG PO DAILY PRN PRN For Insomnia (Reported) Miscellaneous Medications ([dietary supplement ]) PO (Reported) Cranberry Extract (Cranberry) 500 Mg Tablet 500 MG PO (Reported) Ubidecarenone (Co Q10) 60 Mg Capsule 60 MG PO (Reported) Additional med instructions Please continue to take all your regularly prescribed medications from her primary care provider, except for the diabetes medications to which you have responded poorly. I am giving you many prescriptions please fill them as soon as possible from your pharmacy. To start I am giving her a prescription for a medication called Lovenox please inject 100 mg of this medication into your skin twice a day for the next 5 days , the pharmacist will be able to assist you in instructing U on how to administer this medication. This medication is a anticoagulant, what this means is that this will thin your blood and help break up the blood clot which was found in your heart. As this medication is expensive and your insurance will not cover this for a prolonged period of time we are also giving you a prescription for warfarin also known as Coumadin. Please take 5 mg of this medication by mouth every day until told to change the dose. It is extremely important that you follow up in the Coumadin clinic, the pharmacy at [facility] or urgent care to monitor your Coumadin levels. Please do this daily until told otherwise by a physician or a healthcare provider. As your blood sugar levels were wildly out of control during her hospital admission and leading up to your admission your A1c was 15 we are starting you on a long acting basal insulin: Lantus. Please take 35 units of Lantus injected into your skin around her abdominal area every night before bed. Please do this daily. In addition to Lantus I am also prescribing you a short acting insulin called lispro. You are to take this medication before meals approximately 10-15 minutes before meals and you are to check your blood sugars before meals and follow the following correctional dose scale. If before your meals your blood sugar is less than 151 do not inject any insulin lispro. 0 units. If your blood sugar levels are 151-175 please inject one unit of insulin lispro. If your blood sugar level is 176-200 please inject 2 units of insulin lispro. If your blood sugar levels are 201-225 please inject 3 units of lispro. If your blood sugar levels are 226-250 please inject 4 units of lispro. If your blood sugar levels are 251-275 please inject 5 units of lispro. If your blood sugar levels are 276-300 please inject 6 units of lispro. If your blood sugar levels are 301-325 please inject 7 units. If your blood sugar levels are 326[address] 250 please inject 8 units. If your blood sugars at 351-375 please inject 9 units. If your blood sugar levels are 376- 400 please inject 10 units. If your blood sugar levels are greater than 400 please inject 12 units of lispro. To help control your blood pressure and giving a medication called furosemide also known as Lasix. Please take 40 mg of this medication by mouth 2 times a day once in the morning once in the evening for the next 30 days. I am also giving a medication called metoprolol. Please take 75 mg of this medication every day for the next 30 days. Finally I must reemphasize that you are leaving AGAINST MEDICAL ADVICE I strongly encourage you to follow up with your primary care provider and your coating operator as soon as possible as continual dosing of these medications may be needed. As well as to ensure the resolution of the extremely large clot found in your heart. Please return to the emergency room if you develop any new or worsening symptoms. Followup Plan Disposition: Patient discharged AGAINST MEDICAL ADVICE, was able to provide prescriptions for anticoagulant therapy, increased insulin dosing and congestive heart failure medications. Follow-up plan No follow-up plan, patient AMA Discharge Diet: Low fat, Low Sodium, Heart Healthy, Diabetic, Renal Diet Discharge Activity: Limited until seen by PCP Patient Instructions Patient leaving AGAINST MEDICAL ADVICE. Please follow up with the Coumadin clinic and your primary care provider and her coating operator as soon as possible Follow-up Provider: Leticia Jacobs MD Follow-up with PCP in: 1 week Provider: Jessica Phelps MD Follow-up in: 1 week Time spent 40 minutes Attending Statement patient seen with Dr Saenz on 10/07/16 and agree with discharge summary copies to: Leticia Jacobs MD, GILES A DO Oct 07, 2016 18:48 Lawrence Villalta MD Oct 08, 2016 13:30
== END 2016-10-06 16:50 | disposition left against medical advice (07) | DRG 871 ==
LOC: SED 05:00 → PCC 06:32
PROVIDERS: ADMIT Family Medicine; ATTEND Family Medicine
PROC: 4A033B1 Measurement of Arterial Pressure, Peripheral, Percutaneous Approach (ICD-10-PCS; principal; 2016-10-02)
DX: A41.9 Sepsis, unspecified organism (principal); J96.01 Acute respiratory failure with hypoxia; I42.9 Cardiomyopathy, unspecified; I24.0 Acute coronary thrombosis not resulting in myocardial infarction; J18.9 Pneumonia, unspecified organism; F15.20 Other stimulant dependence, uncomplicated; I50.32 Chronic diastolic (congestive) heart failure; J44.1 Chronic obstructive pulmonary disease with (acute) exacerbation; N39.0 Urinary tract infection, site not specified; E87.1 Hypo-osmolality and hyponatremia; I51.3 Intracardiac thrombosis, not elsewhere classified; R65.20 Severe sepsis without septic shock; F41.8 Other specified anxiety disorders; E11.65 Type 2 diabetes mellitus with hyperglycemia; F17.210 Nicotine dependence, cigarettes, uncomplicated; G89.29 Other chronic pain; Z91.19 Patient's noncompliance with other medical treatment and regimen; Z79.4 Long term (current) use of insulin; Z79.51 Long term (current) use of inhaled steroids; Z88.0 Allergy status to penicillin; Z72.89 Other problems related to lifestyle

== ENCOUNTER 2016-10-30 18:33 | Inpatient (IN) | payer OTHER, MEDICAID ==
[~2016-10-30] VITALS: Ht 177.8 cm; Wt 101.2 kg
[~2016-10-30 18:33] MED LIST changes: +CRAN500T2 PO; +DIETARY SUPPLEMENT PO; +FURO-128 PO; -FURO40TA4 PO; +HYDR50CA3 PO; +INSLIS SUBQ; +INSU100V7 SUBQ; +LORA1TAB PO; +LOV100 SUBQ; +METO-272 PO; -METO25TA6 PO; -NICO1PAT6 TOPICAL; +UBID60CA6 PO; +WARF5TAB7 PO
[2016-10-30 18:45] VITALS: BP 146/97; PULSE 146; RESP 20; O2SAT 88
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
[2016-10-30] MEDS ORDERED: Furosemide 10 mg/mL 4 mL Inj IVPUSH ONE (19:00)
[2016-10-30 19:09] LABS: BASOPHILS % (AUTO) 0.8 % (0-3); EOSINOPHILS % (AUTO) 0.6 % (0-5); MONOCYTES % (AUTO) 6.4 % (4-12); Mean Corpuscular Hemoglobin 28.3 pg (27.0-35.0); Mean Corpuscular Volume 92.3 fL (81-100); NEUTROPHILS % (AUTO) 79.8 % (40-74); Platelet Count 300 bil/L (150-400)
--- NOTE | 2016-10-30 19:21 | DRSVH ---
PROCEDURE: X-RAY CHEST ONE VIEW, PORTABLE ([id number]) INDICATIONS: SOB TECHNIQUE: One view of the chest was acquired. COMPARISON: [facility], CR, XR CHEST 1VW (PORTABLE), 10/04/2016, 12:02. FINDINGS: Surgical changes and devices: None. Lungs and pleura: There is diffuse interstitial prominence. Patchy pulmonary radiopacities are presen t within the right lung base. There is a small right pleural effusion. Mediastinum: Mediastinal contours appear normal. Heart size is mildly enlarged, as before. Bones and chest wall: No suspicious bony lesions. Overlying soft tissues appear unremarkable. IMPRESSION: 1. Diffuse interstitial prominence and cardiomegaly suspicious for fluid overload. 2. Right basilar radiopacities and pleural effusion. Differential considerations include infection/as piration, and atelectasis. Dictated by: Radha Almonte M.D. on 10/30/2016 at 19:14 Approved by: Radha Almonte M.D. on 10/30/2016 at 19:20
[2016-10-30 19:31] VITALS: BP 128/80; PULSE 100; O2SAT 100
[2016-10-30 19:33] LABS: TROPONIN T 0.03 ug/L (0.0-0.011)
[2016-10-30 21:53] VITALS: PULSE 102; RESP 26; O2SAT 99
[2016-10-30] MEDS ORDERED: Alum-Mag Hydrox-Simeth 30 mL Suspension PO PRN ×2 (22:05→22:15)
[2016-10-30] MEDS ORDERED: Ondansetron 2 mg/mL 2 mL Inj IVPUSH PRN ×2 (22:05→22:15)
[2016-10-30] MEDS ORDERED: Senna-Docusate 8.6-50 mg Tablet PO PRN (22:15)
[2016-10-30] MEDS ORDERED: Polyethylene Glycol (PEG) 17 Gm Powder PO PRN (22:15)
[2016-10-30 22:22] VITALS: BP 128/80; PULSE 102; RESP 26; O2SAT 99
--- NOTE | 2016-10-30 22:30 | NUR ---
Admission to [facility] Room 2005 Pt arrived to [facility] Room 2005 at approximately 2230 and was able to transfer self from gurney to bathroom and then to bed. Pt arrived on 4L NC and L AC SL with three bags of personal belongings. Pt did have home medications with him and these medications have been sent down to the pharmacy. Pt needs to retrieve his home medications prior to DC and has been educated and made aware of this. Pt is AOx3, HOFFMAN, and VSS. Pt refuses to remove his jeans so unable to fully assess all skin at this time. Encouraging pt to have HOB at least 30 degrees or higher but pt refuses to have HOB elevated beyond 10 degrees even after pt education on CHF. Pt's medication reconciliation has been completed. Pt has c/o 10/10 pain in hip, ankle, and toes. Pt offered Tylenol for pain and pt refused.
[2016-10-30 22:58] VITALS: BP 123/91; PULSE 78; RESP 22; O2SAT 81
[2016-10-31] VITALS (8 sets, daily range): BP systolic 112–120; BP diastolic 67–76; PULSE 98–106; RESP 16–28; O2SAT 96–100
[2016-10-31] MEDS ORDERED: RIVA20TA PO (00:01)
[2016-10-31] MEDS ORDERED: INSU100I (00:01)
--- NOTE | 2016-10-31 00:11 | PCM.HPMED ---
Subjective Date of Service October 30, 2016 Primary Provider: Admitting Physician: Diogo Parsons MD Primary Care Physician: Leticia Jacobs MD Attending Physician: Diogo Parsons MD Admit Status: From the Emergency Department Chief Complaint: Lower extremity swelling and shortness of breath History of Present Illness: This is a 56-year-old male with past medical history significant for CHF, COPD on 2 L of home oxygen at baseline, diabetes mellitus, and anxiety who presented to the [facility] emergency department with lower extremity swelling and shortness of breath. The patient states that the lower extremity swelling began progressively worsening 5 days ago. He states he has gained 40 pounds over the last week and that now the swelling is up to his waistline. He also complains of shortness of breath that is present at rest but also worse exertion. He denies any fevers, increase sputum production, change in color of sputum, fevers, nausea, vomiting, diarrhea. Patient's most recent hospitalization was on 10/02/2016. During that admit he was treated for severe sepsis, congestive heart failure, acute respiratory failure with hypoxia, urinary tract infection, acute kidney injury, and left ventricular mural thrombosis. During hat hospitalization he had a echocardiogram that showed mild concentric left ventricular hypertrophy and severely reduced function with EF of 15-20%, multiple mural thrombi in left ventricular apex and along the inferior lateral wall, enlarged right ventricle with mild to moderate reduced function. Initial vitals in the emergency department were temperature 35.4 Celsius, pulse 146, respiratory rate 20, blood pressure 146/97, satting at 88% on 2 L by nasal cannula. Initial laboratory values showed a WBC of 12.7, hemoglobin 12.9, MCV 92.3, platelets 300. BUN 33, creatinine 1.18, glucose 218, troponin 0.030, proBNP 20454. ProBNP during patient's September visit was 8676. He has had multiple elevated troponins in the past. Chest x-ray today showed diffuse interstitial prominence and cardiomegaly suspicious for fluid overload. Right basilar radiopacities and pleural effusion with differential considerations including infection/aspiration and atelectasis. In the emergency department the patient was given 40 mg of Lasix. Patient stated that after getting this dose of Lasix he has had increased urine output. Review of Systems: A comprehensive review of systems was conducted with the patient and found to be negative except as above in the History of Present Illness. Allergies Coded Allergies: Penicillins (Verified Allergy, Severe, 10/02/16) Uncoded Allergies: NARCOTIC (Allergy, Intermediate, anxiety, panic attacks, suicidal., ) Patient states he gets panic attacks from narcotics if he is on them for a long time. He said more than 10-11 days. STEROIDS (Allergy, Intermediate, violent, 11/08/13) Home Medications Digoxin (Digoxin) 250 Mcg Tablet 0.25 MG PO DAILY@12 Prescribed by: NICK MATIAS MD Enoxaparin (Lovenox) 100 Mg/Ml Syringe 100 MG SUBQ BID Prescribed by: LISBET DÍAZ DO Furosemide (Lasix) 40 Mg Tablet 40 MG PO BID Prescribed by: LISBET DÍAZ DO Insulin Glargine (Lantus U100 Insulin Vial) 100 Unit/Ml Vial 35 UNIT SUBQ HS Prescribed by: LISBET DÍAZ DO Insulin Human Lispro (HumaLOG U100 Insulin Vial) 100 Unit/Ml Unit 0 UNIT SUBQ WMHS Check blood sugars before meals and at bedtime. Use correction factor only before meals. Blood Sugar Lispro Correction: <151, 0 units; 151-175, 1 unit; 176-200, 2 units; 201-225, 3 units; 226-250, 4 units; 251-275, 5 units; 276-300 , 6 units; 301-325, 7 units; 326-350, 8 units; 351-375, 9 units; 376-400, 10 units; >400, 12 units. Prescribed by: LISEBT DÍAZ DO Losartan Potassium (Cozaar) 25 Mg Tablet 12.5 MG PO DAILY Prescribed by: NICK MATIAS MD Metoprolol Succinate ER (Metoprolol Succinate ER) 50 Mg Tab.er.24h 75 MG PO DAILY Prescribed by: LISBET DÍAZ DO Potassium Chloride ER (Klor-Con M20) 20 Meq Tablet 20 MEQ PO DAILY Prescribed by: NICK MATIAS MD Warfarin Sodium (Warfarin Sodium) 5 Mg Tablet 5 MG PO DAILY Prescribed by: LISBET DÍAZ DO As needed Hydroxyzine Pamoate (HydrOXYzine Pamoate) 50 Mg Capsule 50 MG PO HS PRN PRN For Insomnia (Reported) Lorazepam (Lorazepam) 1 Mg Tablet 1 MG PO DAILY PRN PRN For Insomnia (Reported) PMH CHF, EF 15-20% Anxiety COPD Diabetes mellitus type II Depression Chronic back pain Surgical History Colonoscopy C5-6 Disectomy Reports: Back/neck surgery Multiple knee surgeries bilaterally. Family History Family history of CHF Social History Hx Alcohol Use: Yes (1-2 monthly) Hx Substance Use: No Smoking Status: Current Every Day Smoker Exam Vital Signs Vital Sign - Last Date Time Temp Pulse Resp B/P Pulse Ox O2 Delivery O2 Flow Rate FiO2 10/30/16 22:58 36.4 78 22 123/91 81 Nasal Cannula 4.00 Exam General: No acute distress, well-developed, well-nourished, appropriately interactive HEENT: Normocephalic, atraumatic. External ears without defect. Pupils equal, round, and reactive to light and accommodation. Anicteric sclerae, moist conjunctivae, and no lid lag. Oropharynx free of erythema and cobble stoning with moist mucosa. Neck: Supple with full range of motion. No bruits. No lymphadenopathy or thyromegaly. Cardiovascular: Regular rate and rhythm with no murmurs, rubs, or gallops appreciated Pulmonary: Crackles throughout lungs bilaterally. No wheezes or rhonchi. Normal respiratory effort with no use of accessory muscles. Abdomen: Bowel tones present. Soft, nontender,obese. No hepatosplenomegaly or masses appreciated. Extremities: 2+pitting edema of lower extremities. Swelling to waist. Skin: Multiple abrasions throughotu lower extremities. Neurological: Cranial nerves grossly intact. Normal muscle strength, tone, and bulk Psychiatric: Normal mood and affect. Lab and Diagnostics Result Diagram: 10/30/16185010/30/161850 X-Rays, CTs and MRIs Chest x-ray completed on 10/30/2016: IMPRESSION: 1. Diffuse interstitial prominence and cardiomegaly suspicious for fluid overload. 2. Right basilar radiopacities and pleural effusion. Differential considerations include infection/aspiration, and atelectasis. Dictated by: Radha Almonte M.D. on 10/30/2016 at 19:14 Assessment & Plan This is a 56-year-old male with past medical history significant for CHF with ejection fraction of 15-20%, COPD on 2 L of home oxygen, and diabetes mellitus type II who presents for lower extremity edema and shortness of breath. Patient has had multiple congestive heart failure exacerbations in the past. Patient has been afebrile and does not have any increased mucus production or change in color sputum. The chest x-ray does show a right basilar radiopacity and pleural effusion but I suspect the patient's current symptoms are more in line with congestive heart failure. Also of note the patient's BNP is 14,000 which is almost double since his last hospital stay one month ago. The patient was given 40 mg Lasix in the emergency department. Acute on chronic systolic Congestive heart failure with EF of 15-20%, present on admission: Suspect non compliance with medications and dietary indiscretion. No evidence of infection. Patient has history of signing against medical advice and may decide to repeat this -Lasix 80 mg twice a day. -Monitor electrolytes daily -Strict ins and outs. -Continue home medications: Digoxin, losartan, metoprolol. -Potassium chloride 20meq daily added. Diabetes mellitus type II, present admission: -Most recent A1c on 10/02/2016 was 15.5. -Patient's diabetic medications were recently changed. It unclear which medications he is currently taking. -I have placed him on medium dose Humalog correction. 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 Patient did state he takes warfarin but later received page concerning Xarelto. -Day team will need to clarify patients anticoagulation. Elevated troponins: -Chronically elevated. -In setting of CKD. CKD stage 3, stable: -Continue to monitor Med Req: Patient is unclear as to which medications he is currently taking. Med req will still need to be completed. Patient is admitted under inpatient status with expected length of stay greater than 2 midnights due to severity of presenting symptoms, risk of adverse event, and complexity of treatment plan. Attending Statement The patient was seen and examined together with Dr. García on 10/30 and I agree with the history, exam and plan as outlined in the note above. Joaquim García DO October 30, 2016 23:32 Diogo Parsons MD October 31, 2016 02:42
[2016-10-31 00:29] LABS: INR 1.14 ratio
[2016-10-31] MEDS ORDERED: Heparin 5,000 Unit/mL Inj SUBQ SCH (00:30)
[2016-10-31] MEDS: Sodium Chloride LOK Flush 10 mL Syringe IVFLUSH SCH ×3 (02:26→18:22)
--- NOTE | 2016-10-31 04:04 | ABG ---
DateTimeAnalyzed 04:00:00 -_ pH ____7.413 - 7.350 7.450 pCO2 ___43.8__ -mmHg 35.0 45.0 pO2 442 -mmHg 69.0 116 HCO3- ___27.4__ -mmol/L 22.0 26.0 ABE ____2.8__ -mmol/L -2.0 2.0 tHb ___12.8__ -g/dL O2Hb ___98.1__ -% COHb ____1.4__ -% MetHb ____0.7__ -% sO2 __100.2__ -% 25.0 FIO2 __100.0__ -% Drawn By AF - Date/Time Notified____ 04:04:00 -_ Oxygen Device 1 NON RE-YOVANNY - Notified By AF - B 763 -mmHg tO2 ___18.7__ -Vol% OrderingPhysicianInitials mf - Nelson test _Positive -
[2016-10-31] MEDS ORDERED: [UNRECOGNIZED DRUG - REMARK] XX SCH (05:00)
[2016-10-31] MEDS ORDERED: [UNRECOGNIZED DRUG - REMARK] XX SCH (05:00)
--- NOTE | 2016-10-31 08:13 | NUR ---
Respiratory/Skin Pt was put on a continuous pulse ox to track pt's SpO2 and titrate supplemental O2 PRN based upon the pt's needs. Pt's SpO2 fluctuated between 70-80s% on 6L NC so an oxymask was put on the pt at 8-10L and pt SpO2 fluctuated between 70s-100s. Pt was then put on a NRB at 15L and pt SpO2 went to 100% and stayed at 100%. Pt's SpO2 continues to fluctuate on the continuous pulse ox with a finger probe and shows to be between upper 70s-100%. Oncoming shift has been made aware.
--- NOTE | 2016-10-31 09:21 | NUR ---
Social Work Note: Screen Note Data& Assessment: EMR reviewed. Javier Gonzáles is a 56 year old male admitted on 10/30/2016 for congestive heart failure exacerbation. Pt is a readmission from D/C of 10/06/2016. Pt has [employer] and [facility] Medicaid insurance coverage. Pt sees Leticia Jacobs MD for primary care. Pt lives in [place] and is independent at baseline. No discharge needs identified at this time. SW to continue to follow if any needs arise. Plan: Anticipated discharge home via POV when medically ready. No discharge needs identified at this time. SW to continue to follow if any needs arise. SHEBA Green
[2016-10-31] MEDS: Potassium Chloride 20 mEq SR Tablet PO SCH ×2 (11:45→12:07)
[2016-10-31] MEDS: MeTOProlol XL 50 mg ER24 Tablet PO SCH (12:07)
--- NOTE | 2016-10-31 12:47 | PCM.PHAPRO ---
Progress Lower extremity swelling and shortness of breath Patient restarting Warfarin with enoxaparin bridge. for LV Mural Thrombus Pertinent Hx:EtOH overuse, elevated baseline INR, hypoalbuminemia Will start with 5 mg. Pharmacy will continue to follow. Yassine Guzman Pharm.D October 31, 2016 12:47
--- NOTE | 2016-10-31 16:04 | NUR ---
Warfarin withheld 1700 Warfarin dose non administered after discussion with Dr. Biggs -- patient received 100mg subcutaneous Lovenox this afternoon and patient has scheduled Xarelto 1700.
[2016-10-31] MEDS: Insulin Human REGular 300 Unit/3 mL Inj SUBQ SCH ×2 (18:21→21:06)
[2016-10-31] MEDS: oxyCODONE-Acetamin 5-325 mg Tablet PO PRN (18:22)
--- NOTE | 2016-10-31 18:32 | NUR ---
Respiratory/Edema/Pain No reports of chest pain/pressure/discomfort, generalized pitting edema rom waist down to toes, forearms. Denies SOB at rest, however RR at rest is 26 with somewhat labored breathing sounds with long expiratory phase. SPO2 on 2.5L 90-95%. RN notes increased RR and labored breathing with movement. No reports of n/v/d/c or abdominal pain. Voiding in BR dark yellow urine. Note that RN shift assessments are somewhat limited r/t patient reporting pain with touch/episodes of non compliance. Addendum: 10/31/16 at 1834 by LOWELL BOND RN pain in feet r/t edema -- notified, 1 tab Percocet Q4 PRN ordered, one administered at approx 1815.
[2016-10-31] MEDS ORDERED: Insulin GLARgine 100 Unit/mL Syringe SUBQ SCH (21:00)
--- NOTE | 2016-10-31 22:50 | PCM.PNMED ---
Subjective Date of Service October 31, 2016 Subjective The patient was very somnolent this morning but started wake up around noon. When I asked him why he was so difficult to arouse. He stated that he did not sleep hardly at all last evening. He is complaining of bilateral foot pain due to the swelling and edema in his legs. He is asking for some narcotics to treat this condition. His shortness of breath has improved. The patient has no chest pain. The patient has no other new complaints. Exam Vital Signs Vital Sign - Last Date Time Temp Pulse Resp B/P Pulse Ox O2 Delivery O2 Flow Rate FiO2 10/31/16 20:58 36.3 98 16 120/67 97 Nasal Cannula 2.00 Intake and Output 10/30/16 10/30/16 10/31/16 Cumulative From/Thru 15:00 23:00 07:00 10/30/16 18:45 - 10/31/16 06:19 Intake Total 1660 ml 1660 ml Output Total 750 ml 750 ml Balance 910 ml 910 ml Intake Oral 1660 ml 1660 ml Output Urine Total 750 ml 750 ml # Voids 3 3 # Bowel Movements 1 1 Exam General: Patient was very somnolent this morning but is much more awake and responsive by noon and afternoon. He is in minimal distress. He is currently refusing to take off his jeans according to the nursing staff. Lab and Diagnostics Result Diagram: 10/30/16 1851 10/31/16 0820 X-Rays, CTs and MRIs PROCEDURE: X-RAY CHEST ONE VIEW, PORTABLE ([id number]) INDICATIONS: SOB TECHNIQUE: One view of the chest was acquired. COMPARISON: [facility], CR, XR CHEST 1VW (PORTABLE), 10/04/2016, 12: 02. FINDINGS: Surgical changes and devices: None. Lungs and pleura: There is diffuse interstitial prominence. Patchy pulmonary radiopacities are present within the right lung base. There is a small right pleural effusion. Mediastinum: Mediastinal contours appear normal. Heart size is mildly enlarged , as before. Bones and chest wall: No suspicious bony lesions. Overlying soft tissues appear unremarkable. IMPRESSION: 1. Diffuse interstitial prominence and cardiomegaly suspicious for fluid overload. 2. Right basilar radiopacities and pleural effusion. Differential considerations include infection/aspiration, and atelectasis. Dictated by: Radha Almonte M.D. on 10/30/2016 at 19:14 Approved by: Radha Almonte M.D. on 10/30/2016 at 19:20 Cardiac Echo Impressions Echocardiogram Report Name: ANTONELLA LOUIS GStudy Date: 10/02/2016 Height: 70 in Hospital Exam Location: [facility] Weight: 196 lb Gender: Male BSA: 2.1 m2 : 1960 Age: 56 yrs BP: 144/71 m mHg Reason For Study: Congestive Heart Failure Ordering Physician: HOSPITALIST [facility] Performed By: Sheri Pierce Referring Physician: Jessica Phelps Interpretation Summary 1) Mild concentric left ventricular hypertrophy with normal size and severely reduced function (EF 15-20%). 2) Multiple mural thrombi noted in LV apex and along inferolateral wall. 3) Mild to moderately enlarged right ventricle with mildly to moderate reduced function. 4) There is a moderate left-sided pleural effusion. 5) Elevated right sided filling pressures. 6) Compared to the Echo done 06/16/2016, multiple mural thrombi are present in the LV. Assessment & Plan This is a 56-year-old male with past medical history significant for CHF with ejection fraction of 15-20%, COPD on 2 L of home oxygen, and diabetes mellitus type II who presents for lower extremity edema and shortness of breath. Patient has had multiple congestive heart failure exacerbations in the past. Patient has been afebrile and does not have any increased mucus production or change in color sputum. The chest x-ray does show a right basilar radiopacity and pleural effusion suspected to be due to congestive heart failure.. Also, of note the patient's BNP is 14,000 which is almost double since his last hospital stay one month ago. The patient was given 40 mg Lasix in the emergency department. # Acute on chronic systolic Congestive heart failure with EF of 15-20%, present on admission: Suspect non compliance with medications and dietary indiscretion. No evidence of infection. Patient has history of signing against medical advice and may decide to repeat this -We will continue Lasix 80 mg twice a day. -Monitor electrolytes daily -Strict ins and outs. -Continue home medications: Digoxin, losartan, metoprolol. -Potassium chloride 20meq daily added. -Consulted Dr. Phelps of cardiology for further evaluation and treatment recommendations. # Diabetes mellitus type II, present admission: -Most recent A1c on 10/02/2016 was 15.5. -We will begin Lantus insulin 38 units subcutaneous daily at bedtime. -Continue sliding scale insulin coverage with Accu-Cheks before meals and at bedtime # Multiple mural thrombi in left ventricular apex and along the inferior lateral wall, as seen on echocardiogram last month, presumed stable: -Patient was originally prescribed Coumadin however he was unable to go to the Coumadin clinic to have his PT INR check. I spoke with Dr. Phelps about this and she stated that the patient was switched to use her Route toe due to his inability to be on Coumadin. -I have consulted Dr. Phelps of cardiology to evaluate and make recommendations for this patient. # Elevated troponins: -Chronically elevated. -In setting of CKD. - I have consulted Dr. Phelps cardiology for further evaluation and treatment recommendations. # CKD stage 3, stable: -Continue to monitor Disposition: Patient will likely be here another 48-72 hours for the evaluation and treatment of the above conditions. Pain Evaluation: Adequate Pain Control GI Prophylaxis: Proton Pump Inhibitor VTE Prophylaxis: Other (The patient is on Xarelto.) Resuscitation Status: CPR: Attempt Resuscitation DianJoaquim MD October 31, 2016 22:50
[2016-11-01] VITALS (7 sets, daily range): BP systolic 110–131; BP diastolic 75–86; PULSE 55–98; RESP 20–26; O2SAT 93–100
[2016-11-01] MEDS: Sodium Chloride LOK Flush 10 mL Syringe IVFLUSH SCH ×3 (00:35→16:49)
[2016-11-01] MEDS: oxyCODONE-Acetamin 5-325 mg Tablet PO PRN ×5 (02:05→21:08)
[2016-11-01 04:52] LABS: BASOPHILS % (AUTO) 0.7 % (0-3); EOSINOPHILS % (AUTO) 1.1 % (0-5); MONOCYTES % (AUTO) 11.2 % (4-12); Mean Corpuscular Hemoglobin 29.1 pg (27.0-35.0); Mean Corpuscular Volume 93.7 fL (81-100); NEUTROPHILS % (AUTO) 61.5 % (40-74); Platelet Count 265 bil/L (150-400)
[2016-11-01 05:50] LABS: Magnesium 1.8 mg/dL (1.6-2.6); Phosphorus 3.8 mg/dL (2.5-4.9)
--- NOTE | 2016-11-01 06:32 | NUR ---
Respiratory/Edema/Fluid Intake Pt c/o SOB with activity. Pt refused to have the continuous pulse ox on so unable to assess how quickly his SpO2 decreased with activity and whether he was able to quickly compensate. Pt continues to be on 2L NC with SpO2 >92% when resting. Pt's bilateral lower leg edema has begun to weep. Pt said that when he was at home prior to admission to the ED that he had the same problem. Pt continues to request fluids such as juice and jello. Educated pt on fluid intake and explained the reason why the pt was here at the hospital.
[2016-11-01] MEDS: Insulin Human REGular 300 Unit/3 mL Inj SUBQ SCH ×4 (07:30→21:52)
[2016-11-01] MEDS: Potassium Chloride 20 mEq SR Tablet PO SCH ×2 (08:30→08:51)
[2016-11-01] MEDS: Pantoprazole 40 mg ER24 Tablet PO SCH (08:51)
[2016-11-01] MEDS: MeTOProlol XL 50 mg ER24 Tablet PO SCH (08:51)
--- NOTE | 2016-11-01 11:04 | NUR ---
Wound Care Orders received for wound evaluation. Patient seen at bedside. 56 yo diabetic male admitted with shortness of breath and lower extremity edema. Arouses fairly easily, Minimal LE edema today but both lower legs are erythematous. Multiple scabbed ulcerations at feet and legs, none are currently draining and appear chronic in nature. Pt is unable to give a time frame for there onset and seems general unconcerned about them as they are obviously a chronic state for him. Discussed need for clinic office assistant care given his diabetes with likely neuropathy which must be at play here as he is not complaining of pain with any of the ulcers on his feet. No dressings needed at this time, will refer him to clinic office assistant for follow up at discharge.
--- NOTE | 2016-11-01 15:57 | NUR ---
Social Work Note - Continued Discharge Planning: D/A: The Pt is a 56 y/o male that is now on day 2 of admission for CHF exacerbation. SW met with the Pt to explore HH services, Pt agreeable for HH. List given, Pt does not have a preference. Rotating calendar referred to, SW requested referral with Marija LAUREN for (RN/PT/ANIMAL DAMAGE CONTROL AGENT). Access given. F2F to be signed tomorrow 11/02/16 and provided to Marija LAUREN. PAUL will continue to follow. SHEBA Calero Moisture Machine Tender
--- NOTE | 2016-11-01 17:40 | PCM.PNMED ---
Subjective Date of Service November 01, 2016 Subjective Javier Gonzáles is a 56-year-old male with past medical history significant for CHF with ejection fraction of 15-20%, COPD on 2 L of home oxygen, and diabetes mellitus type II currently under treatment for CHF exacerbation. Hospital day # 3. Overnight: Patient continued to desaturate after minimal movement. Today: The patient states he feels marginally improved. He is still quite short of breath and complains of leg pain. He denies any chest pain, fevers, chills, nausea, or vomiting. The remainder of the review of systems is negative except as noted above. Exam Vital Signs Vital Sign - Last Date Time Temp Pulse Resp B/P Pulse Ox O2 Delivery O2 Flow Rate FiO2 11/01/16 16:47 Supplement Oxygen 11/01/16 12:13 88 11/01/16 08:55 36.9 26 131/84 94 2.00 Intake and Output 10/31/16 10/31/16 11/01/16 Cumulative From/Thru 15:00 23:00 07:00 10/30/16 18:45 - 11/01/16 04:59 Intake Total 1668 ml 1240 ml 4568 ml Output Total 3600 ml 900 ml 5250 ml Balance -1932 ml 340 ml -682 ml Intake Oral 1668 ml 1240 ml 4568 ml Output Urine Total 3600 ml 900 ml 5250 ml # Voids 0 3 # Bowel Movements 4 1 6 Exam General: No acute distress, well-developed, well-nourished, appropriately interactive HEENT: Normocephalic, atraumatic. External ears without defect. Pupils equal, round, and reactive to light and accommodation. Anicteric sclerae, moist conjunctivae, and no lid lag. Oropharynx free of erythema and cobble stoning with moist mucosa. Neck: Supple with full range of motion. No bruits. No lymphadenopathy or thyromegaly. Cardiovascular: Regular rate and rhythm with no murmurs, rubs, or gallops appreciated Pulmonary: Crackles throughout lungs bilaterally. No wheezes or rhonchi. Normal respiratory effort with no use of accessory muscles. Abdomen: Bowel tones present. Soft, nontender,obese. No hepatosplenomegaly or masses appreciated. Extremities: 2+pitting edema of lower extremities. Swelling to waist. Bilateral erythema. Skin: Multiple abrasions throughout lower extremities. Neurological: Cranial nerves grossly intact. Normal muscle strength, tone, and bulk Psychiatric: Normal mood and affect. IVs and Medications Medications Reviewed: Medications were reviewed in detail Lab and Diagnostics Result Diagram: 11/01/1644411/01/16444 X-Rays, CTs and MRIs X-RAY CHEST ONE VIEW, PORTABLE IMPRESSION: 1. Diffuse interstitial prominence and cardiomegaly suspicious for fluid overload. 2. Right basilar radiopacities and pleural effusion. Differential considerations include infection/aspiration, and atelectasis. Dictated by: Radha Almonte M.D. on 10/30/2016 at 19:14 Cardiac Echo Impressions nterpretation Summary 1) Mild concentric left ventricular hypertrophy with normal size and severelyreduced function (EF 15-20%). 2) Multiple mural thrombi noted in LV apex and along inferolateral wall. 3) Mild to moderately enlarged right ventricle with mildly to moderatereduced function. 4) There is a moderate left-sided pleural effusion. 5) Elevated right sided filling pressures. 6) Compared to the Echo done 06/16/2016, multiple mural thrombi are presentin the LV. Assessment & Plan Javier Gonzáles is a 56-year-old male with past medical history significant for CHF with ejection fraction of 15-20%, COPD on 2 L of home oxygen, and diabetes mellitus type II currently under treatment for CHF exacerbation. Hospital day # 3. 1. Acute on chronic systolic Congestive heart failure with EF of 15-20%, present on admission, active. Suspect non compliance with medications and dietary indiscretion. No evidence of infection. Patient has history of signing against medical advice and may decide to repeat this -We will continue Lasix 80 mg twice a day. Will add chlorthalidone 25 mg to potentiate diuresis. -Monitor electrolytes daily -Strict ins and outs. -Fluid restriction to 2 L. -Continue home medications: Digoxin, losartan, metoprolol. -Potassium chloride 20meq daily added. -Consulted Dr. Phelps of cardiology for further evaluation and treatment recommendations. Awaiting input. 2. Diabetes mellitus type II, present admission, active -Most recent A1c on 10/02/2016 was 15.5. -We will begin Lantus insulin 38 units subcutaneous daily at bedtime. Patient and episodes of hypoglycemia early this morning we will decrease Lantus 35 units at bedtime. -Continue sliding scale insulin coverage with Accu-Cheks before meals and at bedtime 3. 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 -Per discussion with cardiology patient is on rivaroxaban 4. Elevated troponin of uncertain significance, present on admission, -Chronically elevated in setting of CKD. -Cardiology consulted for further evaluation and treatment recommendations. 5. CKD stage 3, stable -Continue to monitor Disposition: Patient will likely be here another 48-72 hours for the evaluation and treatment of the above conditions. Pain Evaluation: Adequate Pain Control GI Prophylaxis: Proton Pump Inhibitor VTE Prophylaxis: Other Resuscitation Status: CPR: Attempt Resuscitation Attending Statement Patient was seen and examined with Dr. Wilkinson. Patient's chart was reviewed and I agree with the above progress note. Zohreh Wilkinson DO November 01, 2016 17:40 Joaquim Biggs MD November 01, 2016 20:30 treatment recommendations. # CKD stage 3, stable: -Continue to monitor Disposition: Patient will likely be here another 48-72 hours for the evaluation and treatment of the above conditions. GI Prophylaxis: Proton Pump Inhibitor VTE Prophylaxis: Other Resuscitation Status: CPR: Attempt Resuscitation Zohreh Wilkinson DO November 01, 2016 17:40
--- NOTE | 2016-11-01 17:59 | NUR ---
Respiratory/Tele No reports of chest pain/pressure/discomfort. Tele SR/tach 90s-100s with PVCS -- 19 beats VTACH for NOC on 11/01/16. Generalized pitting edema from waist down to toes, forearms -- minimally improved from yesterday. Denies SOB at rest, RR at rest is 26 with somewhat labored breathing sounds. SPO2 on 2L 95%. Continuous SPO2 on that patient removes ad geoff. Had one episode of moderate SOB at rest, patient had removed O2. Placed back on 2L, recovered from mid 80s-mid 90s within a few minutes. Reports left sided chest pain with deep inspirations.
[2016-11-01] MEDS ORDERED: Insulin GLARgine 100 Unit/mL Syringe SUBQ SCH (21:00)
[2016-11-02] VITALS (9 sets, daily range): BP systolic 115–163; BP diastolic 67–110; PULSE 70–103; RESP 16–22; O2SAT 91–97
[2016-11-02] MEDS ORDERED: LORazepam 1 mg Tablet PO PRN (01:15)
[2016-11-02] MEDS: oxyCODONE-Acetamin 5-325 mg Tablet PO PRN ×2 (01:28→14:19)
[2016-11-02] MEDS: Sodium Chloride LOK Flush 10 mL Syringe IVFLUSH SCH ×3 (01:28→17:36)
[2016-11-02 03:13] LABS: BASOPHILS % (AUTO) 0.4 % (0-3); EOSINOPHILS % (AUTO) 1.5 % (0-5); MONOCYTES % (AUTO) 10.7 % (4-12); Mean Corpuscular Hemoglobin 28.4 pg (27.0-35.0); Mean Corpuscular Volume 93.9 fL (81-100); NEUTROPHILS % (AUTO) 60.5 % (40-74); Platelet Count 319 bil/L (150-400)
--- NOTE | 2016-11-02 04:20 | NUR ---
Pain/Anxiety C/O 04/05 pain , gave Percocet x 2 , C/O anxiety , paged hospitalist for meds, gave 1 Mg Ativan PO x1 , Hydralazine 10 Mg PO x1. Pt has insisted on sleeping at the edge of the bed with his head on his bedside table , he has been aroused by the Rn and LEGAL FILE CLERK numerous times that he should ly in bed and elevate his feet, at this suggestion he becomes belligerent and argumentative and refuses to lie in bed. He has been advised of the benefit of elevating his feet to which he told the RN" I have never had a Dr. or nurse ever speak to me in this manner. He refuses to be civil to care givers . Room Air, Saline locked , Telemetry SR 80's , BP 163/110 Bed side glucose check 109 , sliding scale withheld .
[2016-11-02] MEDS: Insulin Human REGular 300 Unit/3 mL Inj SUBQ SCH ×4 (07:30→22:00)
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
[2016-11-02] MEDS: Potassium Chloride 20 mEq SR Tablet PO SCH (10:40)
[2016-11-02] MEDS: Furosemide 10 mg/mL 10 mL Inj IVPUSH SCH (10:40)
[2016-11-02] MEDS: Pantoprazole 40 mg ER24 Tablet PO SCH (10:40)
[2016-11-02] MEDS: MeTOProlol XL 50 mg ER24 Tablet PO SCH (10:42)
[2016-11-02] MEDS ORDERED: Dextrose 10% 1,000 ML IV ONE (10:51)
[2016-11-02] MEDS ORDERED: Dextrose 10% 250 ML in IV Bag 1 EACH IV ONE (11:05)
--- NOTE | 2016-11-02 14:24 | NUR ---
Hypoglycemia, Multidisciplinary Communication 0930 - Discussed his care with the care team during multidisciplinary rounds. 1020 - He had been sleeping soundly and was allowed to do so until now (checked on him several times throughout the morning and noted that he had been moving around in bed). Went in to get his assessment, take his blood glucose (hadn't eaten breakfast yet), and get his vitals. He was easily awakened, but complained of being cold. He felt slightly sweaty. Took his blood glucose and it was 26 the first time. Rechecked it and it was 30. Called Lluvia Harrington RN to assist in stabilizing his sugars. Got him a glass of orange juice which he drank. Went to pull a D50 syringe from the [employer], but both of them were out. Found Pharmacist Tye Ramirez who found a back up bottle of D50 and said he would make sure the [employer] were stocked. Went to give the D50, but noted his IV had dislodged. 1045 - Spoke to ANEL Herrera the IV Nurse in the hallway who said she would try to come place one as soon as possible once she was finished with another procedure. Tried to place an IV, but missed and by that time Sharon came and placed an IV. Lluvia notified Dr. Wilkinson about what was going on. D50 was given right away along with his other morning meds. He became more alert and asked to eat his breakfast sandwich which was given to him. 1100 - 15 minute repeat blood glucose check was 110. An IV of D10W was started at 25 mls/hour per Dr. Wilkinson's orders. Dr. Wilkinson wanted his blood glucose checked again in about an hour. 1235 - Went in the room with Dr. Biggs and Dr. Wilkinson. Checked his blood glucose which was 132. Noted he looked cyanotic as his nose and fingers were rather purple in color. Both doctor's noted this and his pulse oximetry was taken which read 96% on 2L of O2. Per Dr. Wilkinson's orders a continuous pulse oximeter was placed on him. 1410 - Transferred care to Sophie Boyd RN.
--- NOTE | 2016-11-02 16:37 | PCM.PNMED ---
Subjective Date of Service November 02, 2016 Subjective Javier Gonzáles is a 56-year-old male with past medical history significant for CHF with ejection fraction of 15-20%, COPD on 2 L of home oxygen, and diabetes mellitus type II currently under treatment for CHF exacerbation. Hospital day # 4. Overnight: The patient had an episode of hypoglycemia. Today: He was complaining of chills this morning and overall feeling not well. The remainder of the review of systems is negative except as noted above. Exam Vital Signs Vital Sign - Last Date Time Temp Pulse Resp B/P Pulse Ox O2 Delivery O2 Flow Rate FiO2 11/02/16 13:49 36.4 98 22 120/80 96 Nasal Cannula 3.00 Intake and Output 11/01/16 11/01/16 11/02/16 Cumulative From/Thru 15:00 23:00 07:00 10/30/16 18:45 - 11/02/16 05:48 Intake Total 2150 ml 300 ml 7018 ml Output Total 1550 ml 1900 ml 8700 ml Balance 600 ml -1600 ml -1682 ml Intake Oral 2150 ml 300 ml 7018 ml Output Urine Total 1550 ml 1900 ml 8700 ml # Voids 3 6 # Bowel Movements 2 1 9 Exam General: Patient was having shaking chills, under multiple blankets in a hospital bed upon entering the room. She also appeared somewhat cyanotic. HEENT: Normocephalic, atraumatic. External ears without defect. Pupils equal, round, and reactive to light and accommodation. Anicteric sclerae, moist conjunctivae, and no lid lag. Oropharynx free of erythema and cobble stoning with moist mucosa. Neck: Supple with full range of motion. No bruits. No lymphadenopathy or thyromegaly. Cardiovascular: Regular rate and rhythm with no murmurs, rubs, or gallops appreciated Pulmonary: Crackles throughout lungs bilaterally. No wheezes or rhonchi. Normal respiratory effort with no use of accessory muscles. Abdomen: Bowel tones present. Soft, nontender,obese. No hepatosplenomegaly or masses appreciated. Extremities: 2+pitting edema of lower extremities. Swelling to waist. Bilateral erythema that blanched with elevation. Skin: Multiple abrasions throughout lower extremities. No open or draining wounds Neurological: Cranial nerves grossly intact. Normal muscle strength, tone, and bulk Psychiatric: Normal mood and affect. IVs and Medications Medications Reviewed: Medications were reviewed in detail Lab and Diagnostics Result Diagram: 11/02/16 0255 11/02/16 0255 X-Rays, CTs and MRIs X-RAY CHEST ONE VIEW, PORTABLE IMPRESSION: 1. Diffuse interstitial prominence and cardiomegaly suspicious for fluid overload. 2. Right basilar radiopacities and pleural effusion. Differential considerations include infection/aspiration, and atelectasis. Dictated by: Radha Almonte M.D. on 10/30/2016 at 19:14 Cardiac Echo Impressions Interpretation Summary 1) Mild concentric left ventricular hypertrophy with normal size and severely reduced function (EF 15-20%). 2) Multiple mural thrombi noted in LV apex and along inferolateral wall. 3) Mild to moderately enlarged right ventricle with mildly to moderate reduced function. 4) There is a moderate left-sided pleural effusion. 5) Elevated right sided filling pressures. 6) Compared to the Echo done 06/16/2016, multiple mural thrombi are presenting the LV. Assessment & Plan Javier Gonzáles is a 56-year-old male with past medical history significant for CHF with ejection fraction of 15-20%, COPD on 2 L of home oxygen, and diabetes mellitus type II currently under treatment for CHF exacerbation. Hospital day # 4. 1. Acute on chronic systolic Congestive heart failure with EF of 15-20%, present on admission, active. Suspect non compliance with medications and dietary indiscretion. No evidence of infection. Patient has history of signing against medical advice and may decide to repeat this -Patient switched to 80 mg IV of Lasix daily by cardiology. We will continue -Monitor electrolytes daily -Strict ins and outs. -Fluid restriction to 2 L. -Continue home medications: Digoxin, losartan, metoprolol. -Potassium chloride 20meq daily added. -Consulted Dr. Phelps of cardiology for further evaluation and treatment recommendations. Appreciate expertise. 2. Diabetes mellitus type II, present admission, active -Most recent A1c on 10/02/2016 was 15.5. -Patient has had two episodes of hypoglycemia: yesterday morning and his Lantus was decreased by 5 units and again this morning. Decrease Lantus to 10 units. -Currently on D10W at 25cc/hr until his blood sugar stabilizes. Only 250 mL ordered total. -Continue sliding scale insulin coverage with Accu-Cheks before meals and at bedtime 3. 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 -Per discussion with cardiology patient is on Rivaroxaban 4. Elevated troponin of uncertain significance, present on admission, -Chronically elevated in setting of CKD. -Cardiology consulted for further evaluation and treatment recommendations. 5. CKD stage 3, stable -Continue to monitor Disposition: Patient will likely be here another 48-72 hours for the evaluation and treatment of the above conditions. Plan is to discharge him home with home health. Pain Evaluation: Adequate Pain Control GI Prophylaxis: Proton Pump Inhibitor VTE Prophylaxis: Other Resuscitation Status: CPR: Attempt Resuscitation Attending Statement Patient was seen and examined with Dr. Wilkinson. Chart was reviewed and agree with the above progress note. Zohreh Wilkinson DO November 02, 2016 16:08 Joaquim Biggs MD November 02, 2016 18:59
--- NOTE | 2016-11-02 19:37 | PCM.PNCARD ---
Subjective Date of service November 02, 2016 Chief Complaint SOB Constitutional: Denies: Chills, Fever, Sweats ENT: Denies: Ear Discharge, Ear Pain Eyes: Denies: Blurred Vision, Conjunctive Inflammation Cardiovascular: Reports: Edema, Palpitations, SOB on Exertion, SOB while laying flat, Denies: Chest Pain, Irregular Heart Rate, Rapid Heart Rate Respiratory: Reports: SOB with Exertion, Shortness of Breath, Snoring, Denies: Cough, Cough with bloody sputum Gastrointestinal: Denies: Abdominal Pain, Blood in stool (red) Genitourinary: Denies: Dysuria, Hematuria, No burning or pain with urination Musculoskeletal: Denies: Ankle Pain, Back Pain, Knee Pain Skin: Denies: Blisters, Bruising, Dry or Flakiness Neurological: Reports: Confusion, Denies: Change in LOC, Dizziness Endocrine: Reports: Blood Glucose Review Exam Vital Signs Vital Sign - Last Date Time Temp Pulse Resp B/P Pulse Ox O2 Delivery O2 Flow Rate FiO2 11/02/16 18:34 36.6 103 20 115/72 95 Nasal Cannula 3.00 Intake and Output 11/01/16 11/01/16 11/02/16 Cumulative From/Thru 15:00 23:00 07:00 10/30/16 18:45 - 11/02/16 05:48 Intake Total 2150 ml 300 ml 7018 ml Output Total 1550 ml 1900 ml 8700 ml Balance 600 ml -1600 ml -1682 ml Intake Oral 2150 ml 300 ml 7018 ml Output Urine Total 1550 ml 1900 ml 8700 ml # Voids 3 6 # Bowel Movements 2 1 9 General: Pleasant Moderately obese Skin: Warm & dry to touch Head: Normocephalic Neck: JVP elevated Chest: Rales Cardiac: Regular rhythm No murmurs Abdomen: No bruits Obese Neurological: Alert & oriented Psychological: Reduced short term memory Confused Anxious Lab and Diagnostics Labs CBC Test 11/02/16 02:55 White Blood Count 10.4th/mm3 (3.8-10.1) Red Blood Count 4.26mil/mm3 (4.40-5.80) Hemoglobin 12.1g/dL (13.8-17.2) Hematocrit 40.0% (41.0-50.0) Mean Corpuscular Volume 93.9fL (81-100) Mean Corpuscular Hemoglobin 28.4pg (27.0-35.0) Mean Corpuscular Hemoglobin Concent 30.3% (32.0-37.0) Red Cell Distribution Width 17.0% (12.3-15.4) Platelet Count 319bil/L (150-400) Neutrophils (%) (Auto) 60.5% (40-74) Lymphocytes (%) (Auto) 26.7% (14-46) Monocytes (%) (Auto) 10.7% (4-12) Eosinophils (%) (Auto) 1.5% (0-5) Basophils (%) (Auto) 0.4% (0-3) CMP Test 10/30/16 18:51 10/31/16 08:20 11/01/16 04:45 11/02/16 02:55 Troponin T 0.030ug/L Hemoglobin A1c 12.4% Phosphorus Level 3.8mg/dL Magnesium Level 1.8mg/dL Pro-B-Type Natriuretic Peptide 22968xr/mL Procalcitonin 0.16ng/mL Sodium Level 140mEq/L Potassium Level 4.3mEq/L Chloride Level 98mEq/L Carbon Dioxide Level 27mmol/L Blood Urea Nitrogen 32mg/dL Creatinine 1.40mg/dL Estimat Glomerular Filtration Rate 56mL/min Glucose Level 43mg/dL Calcium Level 8.4mg/dL Total Bilirubin 0.5mg/dL Aspartate Amino Transf (AST/SGOT) 24U/L Alanine Aminotransferase (ALT/SGPT) 21U/L Alkaline Phosphatase 93U/L Total Protein 6.3g/dL Albumin 3.2g/dL Result Diagram: 11/02/16 0255 11/02/16 0255 Assessment & Plan Problems: (1) Acute on chronic left systolic heart failure Plan: Etiology probably multifactorial but we are not terribly sure since he has refused heart catheterization in the past. He was also not considered a heart cath patient due to being belligerent to medical staff and it was felt that he will not follow instructions during cath. NYHA class IIIb, EF 15-20%. Noncompliant with meds most likely due to inability to understand his severe heart failure disease and to understand why these medications are important. Given this, I think we are limited with providing any additional cardiology service to this patient. However, I believe we should consider low dose Dobutamine infusion since he appears to have significant residual fluid overload even after a quite impressive initial response to IV Lasix. Consider a PICC line tomorrow am if his urine output decreases with worsening renal function and once in place then start Dobutamine infusion at 2.5 mcg/kg/min and consider increasing it to 5 mcg/kg/min if no response. I believe we should make a valid attempt to aggressively diurese this patient since there is a high likelihood that he will not stay compliant with his oral meds as an outpatient. On discharge, we can consider Entresto instead of an ACEi or ARB, but he will need to stop his Losartan for 2 days prior to to starting Entresto. This can be arranged by our clinic. He will most likely need to file for assistance in order to take this medication. 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 I offered a heart cath and he states that he was never offered this procedure in the past which in fact it was on multiple occasions. Until he is fully compliant and optimized on HF meds and we have completely rule out CAD by coronary angiogram, then AICD is probably not an option either. I will sign off on this patient's case but I will be on standby if you have any further questions with managing this patient's heart failure. Status: Acute ICD Code: I50.23 Pain Evaluation: Adequate Pain Control GI Prophylaxis: Proton Pump Inhibitor VTE Prophylaxis: Other Resuscitation Status: CPR: Attempt Resuscitation Time spent 30 minutes Jesus Joy MD November 02, 2016 19:37
[2016-11-02] MEDS ORDERED: Insulin GLARgine 100 Unit/mL Syringe SUBQ SCH (21:00)
[2016-11-03] MEDS: Sodium Chloride LOK Flush 10 mL Syringe IVFLUSH SCH ×2 (00:30→10:10)
[2016-11-03 00:41] VITALS: BP 98/65; PULSE 96; O2SAT 100
[2016-11-03 02:58] LABS: BASOPHILS % (AUTO) 0.2 % (0-3); EOSINOPHILS % (AUTO) 0.7 % (0-5); MONOCYTES % (AUTO) 10.5 % (4-12); Mean Corpuscular Hemoglobin 28.5 pg (27.0-35.0); Mean Corpuscular Volume 93.4 fL (81-100); NEUTROPHILS % (AUTO) 68.8 % (40-74); Platelet Count 290 bil/L (150-400)
[2016-11-03 03:39] LABS: Magnesium 1.8 mg/dL (1.6-2.6)
[2016-11-03 06:25] LABS: APPEARANCE,URINE CLEAR (CLEAR,HAZY); COLOR,URINE YELLOW (YELLOW); OCCULT BLOOD,URINE LARGE (NEGATIVE)
--- NOTE | 2016-11-03 07:36 | NUR ---
Respiratory/Painful Urination When pt keeps O2 on and is sleeping the pt's SpO2 stays in the upper 90s on 3L NC. Pt continues to be SOB with activity and quickly desats. Pt is only compliant with O2 and the continuous pulse ox a portion of the time. Pt c/o pain when urinating. Pt has been notified that the next time he needs to use the restroom to put on the call light so that we can put a clean hat in the toilet. The hat and urine collection cup are in the room and the order is in the system.
[2016-11-03 07:55] VITALS: BP 87/57; PULSE 94; RESP 22; O2SAT 98
[2016-11-03] MEDS: Potassium Chloride 20 mEq SR Tablet PO SCH (08:00)
[2016-11-03] MEDS: MeTOProlol XL 50 mg ER24 Tablet PO SCH (10:00)
[2016-11-03] MEDS: Pantoprazole 40 mg ER24 Tablet PO SCH (10:00)
[2016-11-03] MEDS: Furosemide 10 mg/mL 10 mL Inj IVPUSH SCH (10:03)
[2016-11-03] MEDS: Insulin Human REGular 300 Unit/3 mL Inj SUBQ SCH ×2 (10:07→11:57)
[2016-11-03] MEDS: oxyCODONE-Acetamin 5-325 mg Tablet PO PRN ×2 (10:17→14:43)
[2016-11-03 10:29] VITALS: PULSE 92
[2016-11-03 11:25] LABS: APPEARANCE,URINE HAZY (CLEAR,HAZY); COLOR,URINE STRAW (YELLOW); OCCULT BLOOD,URINE LARGE (NEGATIVE); PH,URINE 7.5 (5.0-8.0); UROBILINOGEN,URINE NORMAL (NORMAL)
--- NOTE | 2016-11-03 12:07 | DRSVH ---
PROCEDURE: X-RAY CHEST ONE VIEW, PORTABLE ([id number]) INDICATIONS: CONGESTIVE HEART FAILURE TECHNIQUE: One view of the chest was acquired. COMPARISON: [facility], CR, XR CHEST 1VW (PORTABLE), 10/30/2016, 18:42. FINDINGS: Surgical changes and devices: None. Lungs and pleura: Edema has diminished as well as small right pleural effusion. No pneumothorax. Mediastinum: Mediastinal contours appear normal. Heart size is normal. Bones and chest wall: No suspicious bony lesions. Overlying soft tissues appear unremarkable. IMPRESSION: Resolving edema and right pleural effusion. Dictated by: Jacob Mulligan [facility] Interpreted: Radha Almonte MD on 11/03/2016 at 12:06 Transcribed by: KELLEY on 11/03/2016 at 12:06 Approved by: Radha Almonte M.D. on 11/03/2016 at 16:48
[2016-11-03 12:12] VITALS: BP 112/74; PULSE 95; RESP 20; O2SAT 94
--- NOTE | 2016-11-03 12:42 | NUR ---
Back Pain Pt extremely restless at beginning of shift. Stated that his back hurt and asked this RN to apply pressure. After applying pressure and giving a brief back massage, pain medications were offered. 1 tab PRN Percocet was given PO, and orders were also obtained to apply a K-pad for heat. Pt was reassessed after 30 minutes and continued to c/o back pain. With INJECTION SPECIALIST's help he was made comfortable in his bed by laying prone. Pt offered PRN Tylenol but Pt stated that he can not take Tylenol as it causes his ears to ring. aware.
[2016-11-03 12:54] VITALS: PULSE 95
[2016-11-03] MEDS ORDERED: Magnesium Sulf 2 Gm/50mL Water 2 GM in IV Premix 1 EACH IV ONE (15:10)
--- NOTE | 2016-11-03 15:15 | PCM.PNMED ---
Subjective Date of Service November 03, 2016 Subjective Javier Gonzáles is a 56-year-old male with past medical history significant for CHF with ejection fraction of 15-20%, COPD on 2 L of home oxygen, and diabetes mellitus type II currently under treatment for CHF exacerbation. Hospital day #5 Overnight: No acute events are reported. Today: The patient was laying in bed on his stomach and did not want to move. He was complaining of back pain and nerve pain. He denies any chest pain or shortness of breath at this time. His chills have resolved. The remainder of the review of systems is negative except as noted above. Exam Vital Signs Vital Sign - Last Date Time Temp Pulse Resp B/P Pulse Ox O2 Delivery O2 Flow Rate FiO2 11/03/16 12:54 95 11/03/16 12:12 36.7 20 112/74 94 Room Air 11/03/16 07:55 3.00 Intake and Output 11/02/16 11/02/16 11/03/16 Cumulative From/Thru 15:00 23:00 07:00 10/30/16 18:45 - 11/03/16 06:29 Intake Total 1161 ml 903 ml 9082 ml Output Total 5800 ml 1450 ml 60681 ml Balance -4639 ml -547 ml -6868 ml Intake Oral 1000 ml 600 ml 8618 ml IV Total 161 ml 303 ml 464 ml Output Urine Total 5800 ml 1450 ml 17931 ml # Voids 10 16 # Bowel Movements 2 11 Exam General: Patient was laying on his stomach on top of multiple pillows. He refused to turn onto his stomach to have his heart examined. HEENT: Normocephalic, atraumatic. External ears without defect. Pupils equal, round, and reactive to light and accommodation. Anicteric sclerae, moist conjunctivae, and no lid lag. Oropharynx free of erythema and cobble stoning with moist mucosa. Neck: Supple with full range of motion. Cardiovascular: Could not be examined today as the patient would not turn. Pulmonary: Crackles throughout lungs bilaterally improved since yesterday. No wheezes or rhonchi. Normal respiratory effort with no use of accessory muscles. Abdomen: Not able to examine. Extremities: 2+pitting edema of lower extremities. Swelling to waist. Bilateral erythema that blanched with elevation. Skin: Multiple abrasions throughout lower extremities. No open or draining wounds Neurological: Cranial nerves grossly intact. Normal muscle strength, tone, and bulk Psychiatric: Detached mood. IVs and Medications Medications Reviewed: Medications were reviewed in detail Lab and Diagnostics Result Diagram: 11/03/1622911/03/16229 X-Rays, CTs and MRIs X-RAY CHEST ONE VIEW, PORTABLE IMPRESSION: 1. Diffuse interstitial prominence and cardiomegaly suspicious for fluid overload. 2. Right basilar radiopacities and pleural effusion. Differential considerations include infection/aspiration, and atelectasis. Dictated by: Radha Almonte M.D. on 10/30/2016 at 19:14 X-RAY CHEST ONE VIEW, PORTABLE IMPRESSION: Resolving edema and right pleural effusion Dictated by: Jacob Mulligan [facility] Interpreted: Radha Almonte MD on 11/03/2016 at 12:06 Cardiac Echo Impressions Interpretation Summary 1) Mild concentric left ventricular hypertrophy with normal size and severely reduced function (EF 15-20%). 2) Multiple mural thrombi noted in LV apex and along inferolateral wall. 3) Mild to moderately enlarged right ventricle with mildly to moderate reduced function. 4) There is a moderate left-sided pleural effusion. 5) Elevated right sided filling pressures. 6) Compared to the Echo done 06/16/2016, multiple mural thrombi are presenting the LV. Assessment & Plan Javier Gonzáles is a 56-year-old male with past medical history significant for CHF with ejection fraction of 15-20%, COPD on 2 L of home oxygen, and diabetes mellitus type II currently under treatment for CHF exacerbation. Hospital day # 4. 1. Acute on chronic systolic Congestive heart failure with EF of 15-20%, present on admission, active. Suspect non compliance with medications and dietary indiscretion. No evidence of infection. Patient has history of signing against medical advice and may decide to repeat this -Patient switched to 80 mg IV of Lasix daily by cardiology. We will continue -Monitor electrolytes daily -Strict ins and outs. -Fluid restriction to 2 L. -Continue home medications: Digoxin, losartan, metoprolol. -Potassium chloride 20meq daily added. -Dr. Joy saw the patient yesterday and is recommending dobutamine if his urine output declines. We will continue to monitor him at this time. His urine output appears to be stable. 3. Cardiorenal syndrome, not present on admission, active -With underlying CKD stage 3 -Patient currently on 80 mg IV Lasix daily. -Nephrology consulted, appreciate time and expertise. 4. Microscopic hematuria, present on admission, active. -Etiology uncertain. Unclear if this is glomerular bleeding or further down the urinary tract -Nephrology consultation as above. -Patient had an abdominal ultrasound about one month ago which evaluated his kidneys as well, which appeared grossly normal. There is no evidence of hydronephrosis or nephrolithiasis. 5. Diabetes mellitus type II, present admission, active -Most recent A1c on 10/02/2016 was 15.5. -Patient has had two episodes of hypoglycemia: 11/01 and 11/02 requiring D10W. -Decreased home Lantus to 10 units. Will continue. Blood glucose is stable this morning. -Continue sliding scale insulin coverage with Accu-Cheks before meals and at bedtime 6. 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 -Per discussion with cardiology patient is on Rivaroxaban, will continue 7. Elevated troponin of uncertain significance, present on admission, -Chronically elevated in setting of CKD. -Cardiology consulted for further evaluation and treatment recommendations. Disposition: Patient will likely be here another 48-72 hours for the evaluation and treatment of the above conditions. Plan is to discharge him home with home health. GI Prophylaxis: Proton Pump Inhibitor VTE Prophylaxis: Other Resuscitation Status: CPR: Attempt Resuscitation Attending Statement Seen and examined with Dr. Wilkinson. Chart was reviewed and agree with the above progress note. Zohreh Wilkinson DO November 03, 2016 15:15 Joaquim Biggs MD November 03, 2016 18:21
[2016-11-03] MEDS ORDERED: 0.9% Sodium Chloride 250 ML ONE (15:34)
--- NOTE | 2016-11-03 16:48 | NUR ---
AMA Pt asked to leave AMA. Pt stated that he had legal issues to attend to outside of the hospital and had no choice. Pt was informed of risks of leaving AMA which included , worsening renal failure, worsening CHF and inability to breath. Pt was instructed and urged to seek follow up care immediately with either his primary care provider, urgent care, or in an emergency to call 911. MDs and charge nurse notified. Pt filled out "Leaving against medical advice (AMA)" form. Pt's IV was dc'd intact, telemetry was removed and tech notified. Pt's belongings were gathered for transport with pt. Addendum: 11/03/16 at 1754 by JACINTO MYERS RN Pt was escorted off unit by [facility].
--- NOTE | 2016-11-03 17:33 | CONS ---
[address] [address] CONSULTATION REPORT PATIENT: ANTONELLA LOUIS : 1960 MR#: [id number] ADMIT: 10/30/2016 JOB ID: [id number] DATE OF SERVICE: 11/03/2016 The patient is a rather unusual 56-year-old white male who was admitted to [facility] for acute decompensated congestive heart failure. Since admission, he has had a mild increase in his creatinine and also persistent evidence of microscopic hematuria. Renal consultation is being sought for further evaluation of his acute kidney injury and hematuria. The patient is an extremely difficult historian and hard to get consistent answers from. He does have a history of severe ischemic cardiomyopathy and chronic congestive heart failure. His ejection fraction is between 15 and 20%. He has had several admissions in the last several months. However, he has been noncompliant with followup and with medications. In addition, he has a severe back problem relating back to an injury in his teens. As a result of this, he states that he has taken ibuprofen and other nonsteroidals on a regular basis several weeks prior to admission. At time of admission, his BUN and creatinine were 33 and 1.1 respectively. It has risen to a level of 1.55 creatinine today. At the same time, in reviewing his vital signs, he has had some considerable fluctuations in his blood pressures with systolic blood pressures in the 120-130 range, however, in the last 24 hours, this has dropped into the low 100s and mid 80 systolic range. He has not had any other overt nephrotoxins nor has he had any imaging studies with contrast material. On his urinalysis today, he had 11-50 RBCs per high-power field. He denies a history of any prior renal problems. However, I do need to add that he is a rather inconsistent and difficult historian. He denies a history of any prior prostate problems, difficulty with urination, hesitancy, urgency, hematuria or proteinuria prior to this. He does state that he had a urinary tract infection several months ago along with a MRSA infection which was treated without any sequela. Furthermore, he denies a history of rheumatoid arthritis, hepatitis, and he does have a history of insulin-requiring diabetes, hypertension, and ischemic cardiomyopathy. He is unable to give much information about his diabetes, and I suspect that he probably has a component of peripheral neuropathy. He has not seen a deputy chief magistrate in the past. Also, as detailed above, he has a history of hypertension but is somewhat inconsistent with his hypertensive medication. He denies a history of any prior stroke, headache, visual problems, but does have frequent cough productive of mucoid sputum, intermittent shortness of breath and dyspnea on exertion, and some progressive lower extremity edema and increasing abdominal girth. He denies any PND or orthopnea. He also complains of some occasional wheezing. He does state that he has not had any recent change in appetite, nausea, vomiting, constipation, diarrhea, or fever or chills. PAST MEDICAL HISTORY: Significant for diabetes, ischemic cardiomyopathy with congestive heart failure and EF of 10% to 15%, hypertension, COPD, chronic back pain and various arthritic issues related to osteoarthritis. PAST SURGICAL HISTORY: Significant for colonoscopy, discectomy at C5-C6, other surgeries to his back, and multiple knee surgeries bilaterally. ALLERGIES: 1. STEROIDS. 2. PENICILLIN. 3. NARCOTICS. SOCIAL HISTORY: He states that he smokes several cigarettes per week and has for a number of years. He denies use of illicit drugs but states that he does drink ethanol occasionally but is unclear as to the quantity of this. He is quite limited in his activities of daily living due to his back problems. MEDICATIONS: At time of admission include: 1. Digoxin. 2. Lovenox. 3. Furosemide. 4. Insulin. 5. Losartan. 6. Metoprolol. 7. Potassium chloride. 8. Warfarin. FAMILY HISTORY: Noncontributory. REVIEW OF SYSTEMS: Limited but is detailed above. PHYSICAL EXAMINATION: Revealed a well-developed, mildly obese, and pale, 56-year-old, white male who was alert and oriented x3 but in some considerable discomfort sitting up due to his back pain. HEENT examination is remarkable for some bilateral conjunctival injection. Sclerae, cornea, pupils, and extraocular muscles were unremarkable. Neck is supple without adenopathy or thyromegaly, however, there was some jugular venous distention with the patient sitting at 90 degrees. Lungs showed some increase in AP diameter. Lungs showed a few scattered end-expiratory wheezes but otherwise were clear. Heart sounds were distant but appeared to be regular. Abdomen was distended with diminished bowel sounds. There was evidence for free fluid wave, hepatojugular reflux, and the liver appeared to be pulsatile. Extremities showed some [id number] pitting lower extremity edema up through the knees. There was also evidence of half and half nails. He did have several ulcerations on the anterior aspect of his right lower leg. Skin turgor was good and there is no evidence of any rashes. LABORATORY EXAMINATION: This morning, his sodium is 138, potassium 5.3, chloride of 95, bicarbonate 26, BUN and creatinine were 34 and 1.55, albumin is 3.1. PT and INR at time of admission were normal. His white count showed a white count this morning of 10.7, hemoglobin of 12.6, red cell indices, platelet count and differential were normal. Urinalysis showed a specific gravity of 1.010, pH . Tests for occult blood were positive, however, protein, glucose, ketones were negative. Microscopic showed 11-50 red cells per high-power field, 0-5 white cells per high-power field and a few epithelial and no bacteria. IMPRESSION: 1. Acute kidney injury secondary to transient hypotension. 2. Acute decompensated congestive heart failure in part due to noncompliance. 3. Cardiorenal syndrome. 4. Drug-induced acute kidney injury secondary to nonsteroidals. 5. Hematuria. RECOMMENDATION: The patient is adamant about being discharged. If the patient wishes to stay, I would strongly urge a CT of the abdomen and pelvis with oral contrast only. I would also urge a urology consultation for further evaluation of this hematuria secondary to Lovenox. In the meantime, I would like to hold his diuretic for a day or so. I would like to get an ultrasound of his abdomen to evaluate the presence of ascites, and if this should be present to any extent, I would recommend a paracentesis as this will assist in his heart failure relief. I would also like to follow his lab. I would recommend stopping Protonix, potassium chloride for now, and holding his diuretics. Once again, I would like to thank you for allowing me to participate in the care of this most pleasant and interesting gentleman, and I will be following him closely with you.
--- NOTE | 2016-11-03 18:27 | PCM.DC.MED ---
Discharge Summary Date of Service November 03, 2016 Dates of Hospitalization Date of Hospital Admission October 30, 2016 at 21:42 Date of Discharge: November 03, 2016 Providers: Admitting Physician: Diogo Parsons MD Primary Care Physician: Leticia Jacobs MD Attending Physician: Diogo Parsons MD Diagnosis at Time of Discharge Diagnosis at Time of Discharge PATIENT SIGNED OUT AGAINST MEDICAL ADVICE. 1. Acute on chronic systolic Congestive heart failure with EF of 15-20%, present on admission, active. 3. Cardiorenal syndrome, not present on admission, active 4. Microscopic hematuria, present on admission, active. 5. Diabetes mellitus type II, present admission, active 6. 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 Elevated troponin of uncertain significance, present on admission, Consultations Cardiology Nephrology Procedures XRay, CTs & MRIs X-RAY CHEST ONE VIEW, PORTABLE IMPRESSION: 1. Diffuse interstitial prominence and cardiomegaly suspicious for fluid overload. 2. Right basilar radiopacities and pleural effusion. Differential considerations include infection/aspiration, and atelectasis. Dictated by: Radha Almonte M.D. on 10/30/2016 at 19:14 X-RAY CHEST ONE VIEW, PORTABLE IMPRESSION: Resolving edema and right pleural effusion Dictated by: Jacob Mulligan [facility] Interpreted: Radha Almonte MD on 11/03/2016 at 12:06 Cardiac Echo Impression Interpretation Summary 1) Mild concentric left ventricular hypertrophy with normal size and severely reduced function (EF 15-20%). 2) Multiple mural thrombi noted in LV apex and along inferolateral wall. 3) Mild to moderately enlarged right ventricle with mildly to moderate reduced function. 4) There is a moderate left-sided pleural effusion. 5) Elevated right sided filling pressures. 6) Compared to the Echo done 06/16/2016, multiple mural thrombi are presenting the LV. Brief History This is a 56-year-old male with past medical history significant for CHF, COPD on 2 L of home oxygen at baseline, diabetes mellitus, and anxiety who presented to the [facility] emergency department with lower extremity swelling and shortness of breath. The patient states that the lower extremity swelling began progressively worsening 5 days ago. He states he has gained 40 pounds over the last week and that now the swelling is up to his waistline. He also complains of shortness of breath that is present at rest but also worse exertion. He denies any fevers, increase sputum production, change in color of sputum, fevers, nausea, vomiting, diarrhea. Patient's most recent hospitalization was on 10/02/2016. During that admit he was treated for severe sepsis, congestive heart failure, acute respiratory failure with hypoxia, urinary tract infection, acute kidney injury, and left ventricular mural thrombosis. During hat hospitalization he had a echocardiogram that showed mild concentric left ventricular hypertrophy and severely reduced function with EF of 15-20%, multiple mural thrombi in left ventricular apex and along the inferior lateral wall, enlarged right ventricle with mild to moderate reduced function. Initial vitals in the emergency department were temperature 35.4 Celsius, pulse 146, respiratory rate 20, blood pressure 146/97, satting at 88% on 2 L by nasal cannula. Initial laboratory values showed a WBC of 12.7, hemoglobin 12.9, MCV 92.3, platelets 300. BUN 33, creatinine 1.18, glucose 218, troponin 0.030, proBNP 57092. ProBNP during patient's September visit was 8676. He has had multiple elevated troponins in the past. Chest x-ray today showed diffuse interstitial prominence and cardiomegaly suspicious for fluid overload. Right basilar radiopacities and pleural effusion with differential considerations including infection/aspiration and atelectasis. In the emergency department the patient was given 40 mg of Lasix. Patient stated that after getting this dose of Lasix he has had increased urine output. Hospital Course Javier Gonzáles is a 56-year-old male with past medical history significant for CHF with ejection fraction of 15-20%, COPD on 2 L of home oxygen, and diabetes mellitus type II currently under treatment for CHF exacerbation. Hospital day # 4. PATIENT SIGNED OUT AMA. 1. Acute on chronic systolic Congestive heart failure with EF of 15-20%, present on admission, active. Suspect non compliance with medications and dietary indiscretion. No evidence of infection. Patient has history of signing against medical advice and may decide to repeat this -Patient switched to 80 mg IV of Lasix daily by cardiology. -Monitored electrolytes daily -Strict ins and outs. -Fluid restriction to 2 L. -Continued home medications: Digoxin, losartan, metoprolol. -Potassium chloride 20meq daily added. -Dr. Joy saw the patient yesterday and recommended dobutamine if his urine output declines. We will continue to monitor him at this time. His urine output appears to be stable. 3. Cardiorenal syndrome, not present on admission, active -With underlying CKD stage 3 -80 mg IV Lasix daily. -Nephrology consulted, appreciate time and expertise. 4. Microscopic hematuria, present on admission, active. -Etiology uncertain. Unclear if this is glomerular bleeding or further down the urinary tract -Nephrology consultation as above. -Patient had an abdominal ultrasound about one month ago which evaluated his kidneys as well, which appeared grossly normal. There is no evidence of hydronephrosis or nephrolithiasis. 5. Diabetes mellitus type II, present admission, active -Most recent A1c on 10/02/2016 was 15.5. -Patient has had two episodes of hypoglycemia: 11/01 and 11/02 requiring D10W. -Decreased home Lantus to 10 units. Continued. -Continued sliding scale insulin coverage with Accu-Cheks before meals and at bedtime 6. 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 -Per discussion with cardiology patient is on Rivaroxaban, continued 7. Elevated troponin of uncertain significance, present on admission, -Chronically elevated in setting of CKD. -Cardiology consulted for further evaluation and treatment recommendations. Exam Vital Signs (Last) Date Time Temp Pulse Resp B/P Pulse Ox O2 Delivery O2 Flow Rate FiO2 11/03/16 12:54 95 11/03/16 12:12 36.7 20 112/74 94 Room Air 11/03/16 07:55 3.00 Exam General: Patient was laying on his stomach on top of multiple pillows. He refused to turn onto his stomach to have his heart examined. HEENT: Normocephalic, atraumatic. External ears without defect. Pupils equal, round, and reactive to light and accommodation. Anicteric sclerae, moist conjunctivae, and no lid lag. Oropharynx free of erythema and cobble stoning with moist mucosa. Neck: Supple with full range of motion. Cardiovascular: Could not be examined today as the patient would not turn. Pulmonary: Crackles throughout lungs bilaterally improved since yesterday. No wheezes or rhonchi. Normal respiratory effort with no use of accessory muscles. Abdomen: Not able to examine. Extremities: 2+pitting edema of lower extremities. Swelling to waist. Bilateral erythema that blanched with elevation. Skin: Multiple abrasions throughout lower extremities. No open or draining wounds Neurological: Cranial nerves grossly intact. Normal muscle strength, tone, and bulk Psychiatric: Detached mood. Test 10/30/16 18:51 10/31/16 08:20 11/01/16 04:45 11/03/16 02:30 Prothrombin Time 12.2sec (8.1-12.5) Prothromb Time International Ratio 1.14ratio Troponin T 0.030ug/L (0.0-0.011) Hemoglobin A1c 12.4% (4.8-5.6) Phosphorus Level 3.8mg/dL (2.5-4.9) Procalcitonin 0.16ng/mL (0.00-0.08) White Blood Count 10.7th/mm3 (3.8-10.1) Red Blood Count 4.42mil/mm3 (4.40-5.80) Hemoglobin 12.6g/dL (13.8-17.2) Hematocrit 41.3% (41.0-50.0) Mean Corpuscular Volume 93.4fL (81-100) Mean Corpuscular Hemoglobin 28.5pg (27.0-35.0) Mean Corpuscular Hemoglobin Concent 30.5% (32.0-37.0) Red Cell Distribution Width 17.4% (12.3-15.4) Platelet Count 290bil/L (150-400) Neutrophils (%) (Auto) 68.8% (40-74) Lymphocytes (%) (Auto) 19.5% (14-46) Monocytes (%) (Auto) 10.5% (4-12) Eosinophils (%) (Auto) 0.7% (0-5) Basophils (%) (Auto) 0.2% (0-3) Sodium Level 138mEq/L (134-144) Potassium Level 5.3mEq/L (3.5-5.2) Chloride Level 95mEq/L (97-108) Carbon Dioxide Level 26mmol/L (18-29) Blood Urea Nitrogen 34mg/dL (6-24) Creatinine 1.55mg/dL (0.76-1.27) Estimat Glomerular Filtration Rate 49mL/min (>59) Glucose Level 206mg/dL (60-99) Calcium Level 8.8mg/dL (8.5-10.1) Magnesium Level 1.8mg/dL (1.6-2.6) Total Bilirubin 0.5mg/dL (0.0-1.2) Aspartate Amino Transf (AST/SGOT) 27U/L (0-50) Alanine Aminotransferase (ALT/SGPT) 20U/L (0-44) Alkaline Phosphatase 101U/L (25-150) Pro-B-Type Natriuretic Peptide 9832pg/mL (0-210) Total Protein 6.4g/dL (6.4-8.4) Albumin 3.1g/dL (3.4-5.0) Test 11/03/16 06:15 11/03/16 11:00 Urine Culture Reflexed Not indicated Urine Color Straw (YELLOW) Urine Appearance Hazy (CLEAR,HAZY) Urine pH 7.5 (5.0-8.0) Urine Specific [place] 1.010 (1.003-1.035) Urine Protein Negativemg/dL (NEG,TRACE) Urine Glucose (UA) Negativemg/dL (NEGATIVE) Urine Ketones Negativemg/dL (NEGATIVE) Urine Occult Blood Large (NEGATIVE) Urine Nitrite Negative (NEGATIVE) Urine Bilirubin Negative (NEGATIVE) Urine Urobilinogen Normalmg/dL (NORMAL) Urine Leukocyte Esterase Negative (NEGATIVE) Urine RBC 11-50/hpf (0-2) Urine WBC 0-5/hpf (0-5) Urine Epithelial Cells Occasional/hpf (NONE-MOD) Urine Crystals None seen (NONE SEEN) Urine Bacteria None/hpf (NONE-FEW) Urine Hyaline Casts None/lpf (NONE) Urine Granular Casts None seen (NONE SEEN) Urine Waxy Casts None seen (NONE SEEN) Urine Red Blood Cell Casts None seen (NONE SEEN) Urine White Blood Cell Casts None seen (NONE SEEN) Urine Mucus None seen (None Seen) Urine Trichomonas None seen (NONE SEEN) Urine Yeast None (NONE SEEN) Urinalysis Comment None Discharge Medications Discharge Medications ([Prickly Pear]) Unknown Dose PO DAILY (Reported) Digoxin (Digoxin) 250 Mcg Tablet 0.25 MG PO DAILY@12 Prescribed by: NICK MATIAS MD Enoxaparin (Lovenox) 100 Mg/Ml Syringe 100 MG SUBQ BID Prescribed by: LISBET DÍAZ DO Furosemide (Lasix) 40 Mg Tablet 40 MG PO BID Prescribed by: LISBET DÍAZ DO Insulin Glargine (Lantus U100 Insulin Vial) 100 Unit/Ml Vial 35 UNIT SUBQ HS Prescribed by: LISBET DÍAZ DO Insulin Human Lispro (HumaLOG U100 Insulin Vial) 100 Unit/Ml Unit 0 UNIT SUBQ WMHS Check blood sugars before meals and at bedtime. Use correction factor only before meals. Blood Sugar Lispro Correction: <151, 0 units; 151-175, 1 unit; 176-200, 2 units; 201-225, 3 units; 226-250, 4 units; 251-275, 5 units; 276-300 , 6 units; 301-325, 7 units; 326-350, 8 units; 351-375, 9 units; 376-400, 10 units; >400, 12 units. Prescribed by: LISBET DÍAZ DO Losartan Potassium (Cozaar) 25 Mg Tablet 12.5 MG PO DAILY Prescribed by: NICK MATIAS MD Metoprolol Succinate ER (Metoprolol Succinate ER) 50 Mg Tab.er.24h 75 MG PO DAILY Prescribed by: LISBET DÍAZ DO Potassium Chloride ER (Klor-Con M20) 20 Meq Tablet 20 MEQ PO DAILY Prescribed by: NICK MATIAS MD Warfarin Sodium (Warfarin Sodium) 5 Mg Tablet 5 MG PO DAILY Prescribed by: LISBET DÍAZ DO As needed Hydroxyzine Pamoate (HydrOXYzine Pamoate) 50 Mg Capsule 50 MG PO HS PRN PRN For Insomnia (Reported) Lorazepam (Lorazepam) 1 Mg Tablet 1 MG PO DAILY PRN PRN For Insomnia (Reported) Miscellaneous Medications ([dietary supplement ]) PO (Reported) Cranberry Extract (Cranberry) 500 Mg Tablet 500 MG PO (Reported) Insulin Aspart (NovoLOG U-100 Pen) 100 Unit/Ml Insuln.pen (Reported) Rivaroxaban (Xarelto) 20 Mg Tablet 20 MG PO (Reported) Ubidecarenone (Co Q10) 60 Mg Capsule 60 MG PO (Reported) Followup Plan Disposition: Patient left the hospital AMA. Follow-up plan Patient signed out AMA. Time spent The patient left the hospital AMA. Attending Statement The patient was seen and examined with Dr. Wilkinson. Chart was reviewed and I agree with the above discharge summary. Zohreh Wilkinson DO November 03, 2016 18:27 Joaquim Biggs MD November 03, 2016 22:54
== END 2016-11-03 17:38 | disposition left against medical advice (07) | DRG 194 ==
LOC: SED 18:33 → PCC 21:42
PROVIDERS: ADMIT Hospitalist; ATTEND Hospitalist
PROC: 4A033R1 Measurement of Arterial Saturation, Peripheral, Percutaneous Approach (ICD-10-PCS; principal; 2016-10-31)
DX: I50.23 Acute on chronic systolic (congestive) heart failure (principal); I51.3 Intracardiac thrombosis, not elsewhere classified; Z99.81 Dependence on supplemental oxygen; N18.3 Chronic kidney disease, stage 3 (moderate); E11.9 Type 2 diabetes mellitus without complications; R31.29 Other microscopic hematuria; J44.9 Chronic obstructive pulmonary disease, unspecified; F17.210 Nicotine dependence, cigarettes, uncomplicated; Z79.4 Long term (current) use of insulin

== ENCOUNTER 2016-11-14 06:00 | Emergency (ER) | payer MEDICAID, OTHER ==
[~2016-11-14] VITALS: Ht 177.8 cm; Wt 86.3 kg
[~2016-11-14 06:00] MED LIST changes: +INSU100I; +RIVA20TA PO
[2016-11-14 06:02] VITALS: BP 131/86; PULSE 93; RESP 22; O2SAT 98
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
[2016-11-14] MEDS ORDERED: LORazepam 0.5 mg Tablet PO ONE ×2 (07:55)
[2016-11-14 08:32] VITALS: BP 142/86; PULSE 114; RESP 21; O2SAT 100
== END 2016-11-14 08:33 | disposition home or self-care (01) ==
LOC: SED 06:00
DX: F41.9 Anxiety disorder, unspecified (principal); J45.909 Unspecified asthma, uncomplicated; J44.9 Chronic obstructive pulmonary disease, unspecified; E11.9 Type 2 diabetes mellitus without complications; F17.200 Nicotine dependence, unspecified, uncomplicated; F32.9 Major depressive disorder, single episode, unspecified; Z87.440 Personal history of urinary (tract) infections; Z88.0 Allergy status to penicillin; Z79.4 Long term (current) use of insulin; Z79.01 Long term (current) use of anticoagulants